=== PATIENT | male | born 1945 | race Hispanic/Latino ===

== ENCOUNTER 2020-07-30 05:30 | Emergency (ER) | payer MEDICARE ==
[~2020-07-30] VITALS: Ht 167.6 cm; Wt 72.6 kg
[2020-07-30] MEDS ORDERED: MORPHINE SULFATE INJ 4 MG/ML INJ 1ML IV STA (05:36)
[2020-07-30] MEDS ORDERED: ONDANSETRON HCL INJ 2MG/ML 2ML 2 MG/ML VIAL IV STA (05:36)
[2020-07-30] MEDS ORDERED: SODIUM CHLORIDE 0.9% 1000ML 1,000 ML IV ONE (05:45)
--- NOTE | 2020-07-30 05:47 | Emergency Department Note ---
History of Present Illnes History of Present Illness Chief Complaint: Abdominal Complaints History of Present Illness This is a 75 year old male PRESENTS TO ED WITH REPORT OF LLQ PAIN AND NAUSEA X3 HRS; 20 GAUGE IV CATH PLACED TO PTS LEFT AC, BLOOD OBTAINED FOR LAB ANALYSIS; PTS SKIN WARM, DRY, . Historian: Patient, Family Member Arrival Mode: Car Onset (how long ago): hour(s) (3) Location: LLQ Quality: PAIN Radiation: Reports non-radiation Severity: moderate Onset quality: sudden Duration (how long): hour(s) (3) Timing of current episode: constant Progression: unchanged Chronicity: new Context: Denies recent illness, Denies recent surgery, Denies recent travel Relieving factors: none Exacerbating factors: none Associated symptoms: Reports nausea/vomiting Treatments prior to arrival: none (AMANDO WRIGHT MD) Past Medical/Family History Physician Review I have reviewed the patient's past medical and family history. Any updates have been documented here. (AMANDO WRIGHT MD) Past Medical History Recent Fever: No Clinical Suspicion of Infectio: No New/Unexplained Change in Ment: No (AMANDO WRIGHT MD) Social History Smoking Cessation: Never Smoker Alcohol Use: None Any Illegal Drug Use: No Physically hurt or threatened: No (AMANDO WRIGHT MD) Family History Family history of heart diseas: No (AMANDO WRIGHT MD) Review of Systems Review of Systems Constitutional: Reports no symptoms EENTM: Reports no symptoms Cardiovascular: Reports no symptoms Respiratory: Reports no symptoms Gastrointestinal: Reports as per HPI Genitourinary: Reports no symptoms Musculoskeletal: Reports no symptoms Integumentary: Reports no symptoms Neurological: Reports no symptoms Psychological: Reports no symptoms Endocrine: Reports no symptoms Hematological/Lymphatic: Reports no symptoms (AMANDO WRIGHT MD) Physical Exam Related Data Allergies: Coded Allergies: iodine (Verified Allergy, Intermediate, 07/30/20) Triage Vital Signs Vital Signs Date Time Temp Pulse Resp B/P (MAP) Pulse Ox O2 Delivery O2 Flow Rate FiO2 07/30/20 05:33 97.8 72 18 129/64 98 Room Air Vital signs reviewed: Yes (AMANDO WRIGHT MD) Physical Exam CONSTITUTIONAL Constitutional: Present well-developed, Present well-nourished, Present distressed (MODERATE) HENT HENT: Present normocephalic, Present atraumatic, Present oropharynx clear/moist, Present nose normal HENT L/R: Present left ext ear normal, Present right ext ear normal EYES Eyes: Reports PERRL, Reports conjunctivae normal NECK Neck: Present ROM normal PULMONARY Pulmonary: Present effort normal, Present breath sounds normal CARDIOVASCULAR Cardiovascular: Present regular rhythm, Present heart sounds normal, Present capillary refill normal, Present normal rate GASTROINTESTINAL Abdominal: Present soft, Present bowel sounds normal, Present tender (MODERATE LLQ); Absent left CVA tenderness GENITOURINARY Genitourinary: Present exam deferred SKIN Skin: Present warm, Present dry MUSCULOSKELETAL Musculoskeletal: Present ROM normal NEUROLOGICAL Neurological: Present alert, Present oriented x 3, Present no gross motor or sensory deficits PSYCHOLOGICAL Psychological: Present mood/affect normal, Present judgement normal (AMANDO BUCHANAN MD) Procedures 12 Lead ECG Interpretation ECG Interpretation : ECG: ECG 1 Cnc Set Up Operator: Interpreted by ED physician Date: Jul 30, 2020 Time: 05:44 Rhythm: sinus rhythm Rate: normal BPM: 62 QRS axis: normal ST segments normal: Yes T waves normal: Yes Other findings: LVH Clinical Impression: non-specific ECG (AMANDO WRIGHT MD) Assessment & Plan Medical Decision Making MDM PT WITH LLQ PAIN WITH N/V CBC, CMP, AMYLASE, LIPASE, UA, CT ABD/PELVIS ORDERED TO EVAL FOR DIVERTICULITIS, COLITIS, UTI, HEMATURIA, KIDNEY STONE, ELEVATED LFT'S MORPHINE 4 MG IV ORDERED ZOFRAN 4 MG IV ORDERED NS 1 LITER IV BOLUS ORDERED [address] KYLE (AMANDO WRIGHT MD) MDM Distal L 4mm ureteral stone noted on CT w/ mild hydro. Non obstructive. Will DC on Drury 5, zofran, and f/u w/ Dr. Lovell in Urology (ANASTACIA KYLE MD) Assessment & Plan Final Impression: (1) Abdominal pain (AMANDO WRIGHT MD) Final Impression: (1) Abdominal pain (2) Ureterolithiasis (ANASTACIA KYLE MD) Depart Disposition: HOME, SELF-CARE Last Vital Signs Date Time Temp Pulse Resp B/P (MAP) Pulse Ox O2 Delivery O2 Flow Rate FiO2 07/30/20 05:33 97.8 72 18 129/64 98 Room Air (AMANDO WRIGHT MD) Medications in the ED Morphine Sulfate 4 mg NOW STAT IV ; Start 07/30/20 at 05:36; Stop 07/30/20 at 05:37; Status UNV Ondansetron HCl 4 mg NOW STAT IV ; Start 07/30/20 at 05:36; Stop 07/30/20 at 05:37; Status UNV Sodium Chloride 1,000 ml @ 999 mls/hr Q1H1M ONCE IV ; Start 07/30/20 at 05:45; Stop 07/30/20 at 06:45 (AMANDO WRIGHT MD) AMANDO WRIGHT MD Jul 30, 2020 05:47 ANASTACIA KYLE MD Jul 30, 2020 06:44
[2020-07-30 05:53] LABS: BASOPHILS % 0.5 % (0.0-1.0); EOSINOPHILS # (AUTO) 0.1 (0.0-0.4); EOSINOPHILS % 1.2 % (0.0-6.0); HEMATOCRIT 42.8 % (38.2-49.6); HEMOGLOBIN 14.1 g/dL (14.0-18.0); LYMPHOCYTES # (AUTO) 2.6 (1.0-3.2); LYMPHOCYTES % 31.8 % (18.0-39.1); MEAN CORPUSCULAR HEMOGLOBIN 29.6 pg (28-32); MEAN CORPUSCULAR HGB CONC 32.9 g/dL (31-35); MEAN CORPUSCULAR VOLUME 89.9 fL (81-99); MONOCYTES # (AUTO) 0.5 (0.2-0.8); MONOCYTES % 6.5 % (4.4-11.3); NEUTROPHILS # (AUTO) 4.9 (2.1-6.9); NEUTROPHILS % 59.6 % (38.7-80.0); PLATELET COUNT 253 x10e3/uL (140-360); RED BLOOD COUNT 4.76 x10e6/uL (4.3-5.7); RED CELL DISTRIBUTION WIDTH 12.9 % (11.7-14.4)
[2020-07-30] MEDS ORDERED: MORPHINE SULFATE 2 MG/ML SYR 1ML ONE (05:54)
[2020-07-30] MEDS ORDERED: ONDANSETRON HCL INJ 2MG/ML 2ML 2 MG/ML VIAL ONE (05:54)
[2020-07-30 06:02] LABS: CLARITY,URINE CLEAR (CLEAR); COLOR,URINE YELLOW (YELLOW); LEUKOCYTE ESTERASE ,URINE NEGATIVE (NEGATIVE); NITRITE,URINE NEGATIVE (NEGATIVE)
[2020-07-30 06:03] LABS: BILIRUBIN,URINE SMALL (NEGATIVE); KETONES,URINE 1+ (NEGATIVE); PROTEIN,URINE DIPSTICK 2+ (NEGATIVE); URINE UROBILINOGEN 0.2 mg/dL (0.2 - 1)
--- OUTSIDE RECORDS SUMMARY | 2020-07-30 06:04 | XMS REPORT | Continuity of Care Document ---
Author Author LANDON Pedroza [employer] Address Unknown Phone Unavailable Care Team Providers Care Assistant Signal Maintainer Name Role Phone [employer] Information Exchange Unavailable Un available Problems Problem Status Onset Date Classification Date Reported Comments Source Benign hypertension (disorder) Active Problem 12/2019 [facility] Diabetic complication (disorder) Active Problem 12/2019 [facility] History of malignant neoplasm of prostate (situation) Active Problem 10/25/2019 [facility] Mixed hyperlipidemia (disorder) Active Problem 12/2019 [facility] Medications Medication Details Route Status Patient Instructions Ordering Provider Order Date Source rosuvastatin 10 mg oral tablet See Instructions, # 90 tab, TOME PHIL TABLETA POR VIA ORAL [place], Pharmacy: [facility]/pharmacy #6000 Active 10/23/2019 [facility] omeprazole 40 mg oral delayed release capsule See Instructions, # 90 unknown unit, TOME PHIL [place]A [place], Pharmacy: [facility]/pharmacy #6000 Active 07/26/2019 [facility] ONE TOUCH ULTRA BLUE TEST STRP See Instructions, # 100 strip, Refill(s) 12, USE [place], Pharmacy: [facility]/pharmacy #6000 Active 07/08/2019 [facility] rosuvastatin 10 mg oral tablet See Instructions, TOME PHIL TABLETA [place], # 90 tab, 1 Refill(s), Pharmacy: [facility]/pharmacy #6000 Active 04/26/2019 [facility] Metformin hydrochloride 500 MG Oral Tablet 500 mg = 1 tab, PO, BID-Meals, # 180 tab, 1 Refill(s), Pharmacy: [facility]/pharmacy #6000 Active 04/26/2019 [facility] Hydrochlorothiazide 12.5 MG / Losartan P otassium 50 MG Oral Tablet See Instructions, TOME PHIL TABLETA [place], # 90 tab, 1 Refill(s), Pharmacy: [facility]/pharmacy #6000 Active 04/26/2019 [facility] Atenolol 100 MG Oral Tablet Se e Instructions, TOME PHIL TABLETA [place], # 90 tab, 1 Refill(s), Pharmacy: [facility]/pharmacy #6000 Active 04/26/2019 [facility] Diclofenac Sodium 0.01 MG/MG Topical Gel 4 gm = 1 appl, TOP, BID, PRN Apply to affected area, # 100 gm, 1 Refill(s), Pharmacy: [facility]/pharmacy #6000 Active 04/26/2019 [facility] meloxicam 15 mg oral tablet 15 mg = 1 tab, PO, Daily, # 30 tab, 0 Refill(s), Pharmacy: [facility]/pharmacy #6000 Active 04/26/2019 [facility] Metformin hydrochloride 500 MG Oral Tablet 500 mg = 1 tab, PO, BID-Meals, # 180 tab, 1 Refill(s), Pharmacy: [facility]/pharmacy #6000 Active 02/08/2019 [facility] Hydrochlorothiazide 12.5 MG / Losartan P otassium 50 MG Oral Tablet See Instructions, # 90 tab, Refill(s) 1, TOME PHIL TABLETA [place], Pharmacy: [facility]/pharmacy #6000 Active 01/11/2019 [facility] omeprazole 40 mg oral delayed release capsule See Instructions, # 90 unknown unit, TOME PHIL CAPSULA [place], Pharmacy: [facility]/pharmacy #6000 Active 01/11/2019 [facility] Metformin hydrochloride 500 MG Oral Tablet See Instructions, # 180 tab, Refill(s) 1, TOME PHIL TABLETA POR VIA ORAL DOS VECES [place], Pharmacy: [facility]/pharmacy #6000 Active 01/11/2019 [facility] Atenolol 100 MG Oral Tablet Se e Instructions, # 90 tab, Refill(s) 1, TOME PHIL TABLETA [place], Pharmacy: [facility]/pharmacy #6000 Active 01/11/2019 [facility] levocetirizine 5 mg oral tablet See Instructions, # 30 tab, TOME PHIL TABLETA [place], Pharmacy: [facility]/pharmacy #6000 Active 12/30/2018 [facility] levocetirizine dihydrochloride 5 MG Oral Tablet [Xyzal ] 5 mg = 1 tab, PO, QPM, # 30 tab, 0 Refill(s), Pharmacy: [facility]/pharmacy #6000 No Longer Active 11/30/2018 [facility] Codeine Phosphate 2 MG/ML / Guaifenesin 20 MG/ML Oral Solution [Cheratussin] 10 ml, PO, Q8H, PRN for cough, X 14 day, # 120 mL, 0 Refill(s) No Longer Active 11/30/2018 [facility] rosuvastatin 10 mg oral tablet See Instructions, # 90 tab, Refill(s) 1, TOME PHIL TABLETA [place] [facility], Pharmacy: [facility]/pharmacy #6000 Active 11/05/2018 [facility] omeprazole 40 mg oral delayed release capsule See Instructions, # 90 unknown unit, TOME PHIL CAP[place]ULA [facility], Pharmacy: [facility]/pharmacy #6000 No Longer Active 11/05/2018 [facility] Hydrochlorothiazide 12.5 MG / Losartan P otassium 50 MG Oral Tablet 1 tab, PO, Daily, # 90 tab, 1 Refill(s), Pharmacy: [facility]/pharmacy #6000 No Longer Active 08/22/2018 [facility] tadalafil 5 MG Oral Tablet [Cialis] 5 mg = 1 tab, PO, Daily, Benign Prostatic Hyperplasia, # 30 tab, 0 Refill(s), Pharmacy: [facility]/pharmacy #6000 Active 08/08/2018 [facility] rosuvastatin 10 mg oral tablet 10 mg = 1 tab, PO, Bedtime, # 90 tab, 0 Refill(s), Pharmacy: [facility]/pharmacy #6000 No Longer Active 08/08/2018 [facility] omeprazole 40 mg oral delayed release capsule 40 mg = 1 cap, PO, Daily, # 90 cap, 0 Refill(s), Pharmacy: [facility]/pharmacy #6000 No Longer Active 08/08/2018 [facility] Metformin hydrochloride 500 MG Oral Tablet 500 mg = 1 tab, PO, BID-Meals, # 180 tab, 1 Refill(s), Pharmacy: [facility]/pharmacy #6000 No Longer Active 08/08/2018 [facility] Hydrochlorothiazide 12.5 MG / valsartan 80 MG Oral Tablet 1 tab, PO, Daily, # 90 tab, 1 Refill(s), Pharmacy: [facility]/pharmacy #6000 No Longer Active 08/08/2018 [facility] Atenolol 100 MG Oral Tablet 10 0 mg = 1 tab, PO, Daily, # 90 tab, 1 Refill(s), Pharmacy: [facility]/pharmacy #6000 No Longer Active 08/08/2018 [facility] rosuvastatin 10 mg oral tablet 10 mg = 1 tab, PO, Bedtime, # 90 tab, 0 Refill(s) Inactive 08/08/2018 [facility] Atenolol 100 MG Oral Tablet 10 0 mg = 1 tab, PO, Daily, # 90 tab, 0 Refill(s) Inactive 08/08/2018 [facility] Hydrochlorothiazide 12.5 MG / valsartan 80 MG Oral Tablet 1 tab, PO, Daily, # 90 tab, 1 Refill(s) Inactive 08/08/2018 [facility] omeprazole 40 mg oral delayed release capsule 40 mg = 1 cap, PO, Daily, # 90 cap, 0 Refill(s) Inactive 08/08/2018 [facility] tadalafil 5 MG Oral Tablet [Cialis] 5 mg = 1 tab, PO, Daily, Benign Prostatic Hyperplasia, # 90 tab, 3 Refill(s) Inactive 08/08/2018 [facility] Metformin hydrochloride 500 MG Oral Tablet 500 mg = 1 tab, PO, BID-Meals, # 180 tab, 1 Refill(s) Inactive 08/08/2018 [facility] Allergies, Adverse Reactions, Alerts Substance Category Reaction Severity Reaction type Status Date Reported Comments Source iodine Assertion Drug allergy Active [facility] Immunizations Immunization Date Given Site Status Last Updated Comments Source pneumococcal 13-valent vaccine<sup>1</sup> 08/08/2018 Right Deltoid completed [place] Result Comment: Pat dallasnt waited in room ten mins no allergic reaction. Medical [facility] Results No Data Provided for This Section Pathology Reports No Data Provided for This Section Diagnostic Reports No Data Provided for This Section Consultation Notes No Data Provided for This Section Discharge Summaries No Data Provided for This Section History and Physicals No Data Provided for This Section Vital Signs Vital Sign Value Date Comments Source Height 170.18 cm 04/26/2019 [facility] Weight 71.364 04/26/2019 [facility] BMI Calculated 24.64 04/26/2019 [facility] Heart Rate 63 04/26/2019 [facility] Systolic (mm Hg) 136 04/26/2019 [facility] Diastolic (mm Hg) 83 04/26/2019 [facility] Respitory Rate 16 04/26/2019 [facility] Systolic (mm Hg) 137 12/24/2018 [facility] Diastolic (mm Hg) 69 12/24/2018 [facility] Height 165.1 cm 12/24/2018 [facility] Weight 76.364 12/24/2018 [facility] BMI Calculated 28.02 12/24/2018 [facility] Heart Rate 66 12/24/2018 [facility] Respitory Rate 16 12/24/2018 [facility] Temperature Oral (F) 97.0 F 12/24/2018 [facility] Systolic (mm Hg) 149 12/24/2018 [facility] Diastolic (mm Hg) 80 12/24/2018 [facility] BMI Calculated 27.01 11/30/2018 [facility] Weight 75.909 11/30/2018 [facility] Height 167.64 cm 11/30/2018 [facility] Heart Rate 72 11/30/2018 [facility] Systolic (mm Hg) 136 11/30/2018 [facility] Diastolic (mm Hg) 74 11/30/2018 [facility] Temperature Oral (F) 97.7 F 11/30/2018 [facility] Respitory Rate 16 11/30/2018 [facility] Respitory Rate 16 08/22/2018 [facility] Temperature Oral (F) 97.6 F 08/22/2018 [facility] Heart Rate 76 08/22/2018 [facility] BMI Calculated 30 08/22/2018 [facility] Height 160.02 cm 08/22/2018 [facility] Weight 76.818 08/22/2018 [facility] Systolic (mm Hg) 133 08/22/2018 [facility] Diastolic (mm Hg) 74 08/22/2018 [facility] Temperature Oral (F) 97.4 F 08/08/2018 [facility] Systolic (mm Hg) 126 08/08/2018 [facility] Diastolic (mm Hg) 74 08/08/2018 [facility] Heart Rate 72 08/08/2018 [facility] Respitory Rate 16 08/08/2018 [facility] Height 165.1 cm 08/08/2018 [facility] BMI Calculated 28.18 08/08/2018 [facility] Weight 76.818 08/08/2018 [facility] Encounters Location Location Details Encounter Type Encounter Number Reason For Visit Attending Provider ADM Date DC Date Status Source Outpatient [id number] DEVI BILLY 08/08/2018 [facility] Primary [facility] Outpatient [id number] Devi Billy 08/08/2018 08/09/2018 [facility] Outpatient [id number] DEVI BILLY 08/22/2018 [facility] Primary [facility] Outpatient [id number] Devi Mariajose 08/22/2018 08/23/2018 [facility] Outpatient [id number] DEVI BILLY 11/30/2018 Active [facility] Outpatient [id number] Devi Mariajose 11/30/2018 12/01/2018 [facility] Outpatient [id number] DEVI MARIAJOSE 12/24/2018 Active [facility] Outpatient [id number] Devi Mariajose 12/24/2018 12/25/2018 [facility] Phone Message [id number] 02/08/2019 02/10/2019 [facility] Outpatient [id number] Devi Billy 04/26/2019 Active [facility] Outpatient [id number] Devi Mariajose 04/26/2019 04/27/2019 [facility] Phone Message [id number] 07/08/2019 07/10/2019 [facility] Phone Message [id number] 07/25/2019 07/27/2019 [facility] Phone Message [id number] 10/21/2019 10/23/2019 [facility] Phone Message [id number] 10/21/2019 10/23/2019 [facility] Phone Message [id number] 10/21/2019 10/23/2019 [facility] Phone Message [id number] 10/22/2019 10/24/2019 [facility] Procedures Procedure Code Date Perfomer [facility] Source Diabetic Retinopathy Study 7 field stere oscopic fundus photography<sup>1, 2</sup> [id number] 05/15/2019 [facility] Exercise stress test<sup>1</sup> [id number] 10/18/2018 [facility] Exercise stress test<sup>3</sup> [id number] 10/18/2018 [facility] Diabetic Retinopathy Study 7 field stere oscopic fundus photography<sup>2</sup> [id number] 03/23/2018 [facility] Colonoscopy [id number] 10/23/2010 [facility] Assessment and Plan No Data Provided for This Section Plan of Care No Data Provided for This Section Social History Social History Date Source Social History TypeResponse Alcohol Never Smoking Status Never smoker; Exposure to Tobacco Smoke None; Cigarette Smoking Last 365 Days No; Reg Smoking Cessation Counseling No entered on: 04/26/19 08/08/2018 [facility] Family History No Data Provided for This Section Advance Directives No Data Provided for This Section Functional Status No Data Provided for This Section
[2020-07-30 06:10] LABS: ALANINE AMINOTRANSFERASE 30 IU/L (0-55); ALBUMIN 3.7 g/dL (3.5-5.0); ALBUMIN/GLOBULIN RATIO 1.2 (0.8-2.0); ALKALINE PHOSPHATASE 61 IU/L (40-150); ANION GAP 17.6 mmol/L (8-16); BLOOD UREA NITROGEN 17 mg/dL (7-26); BUN/CREATININE RATIO 19 (6-25); CALCIUM 9.1 mg/dL (8.4-10.2); CARBON DIOXIDE 21 mmol/L (22-29); CHLORIDE 106 mmol/L (98-107); EST GLOMERULAR FILTRATION RATE > 60 ML/MIN (60-); GLUCOSE 143 mg/dL (74-118); POTASSIUM 3.6 mmol/L (3.5-5.1); SODIUM 141 mmol/L (136-145)
[2020-07-30 06:11] LABS: AMYLASE 93 U/L (25-125); LIPASE 38 U/L (8-78)
[2020-07-30 06:23] LABS: BACTERIA,URINE MODERATE /HPF; EPITHELIAL CELLS,URINE FEW /LPF; RBC,URINE >50 /HPF (0-5); WBC,URINE (MAN) 0-5 /HPF (0-5)
[2020-07-30] MEDS ORDERED: KETOROLAC TROMETHAMINE 30 MG/ML VIAL IV STA (06:27)
--- NOTE | 2020-07-30 06:30 | Diagnostic Imaging Report ---
EXAM: CT Abdomen and Pelvis WITHOUT contrast INDICATION: LLQ PAIN, PT IS ALLERGIC TO IODINE COMPARISON: None. TECHNIQUE: Abdomen and pelvis were scanned utilizing a multidetector helical scanner from the lung base to the pubic symphysis without administration of IV contrast. Absence of intravenous contrast decreases sensitivity for detection of focal lesions and vascular pathology. Coronal and sagittal reformations were obtained. Routine protocol was performed. IV CONTRAST: None ORAL CONTRAST: None COMPLICATIONS: None FINDINGS: LOWER THORAX: Mild dependent atelectasis. HEPATOBILIARY: No significant abnormality. GALLBLADDER: No radio-opaque stones or sludge. No wall thickening. SPLEEN: No splenomegaly. PANCREAS: No focal masses or ductal dilatation. ADRENALS: No adrenal nodules KIDNEYS/URETERS: 4 mm calculus in the distal left ureter with resultant mild hydroureteronephrosis and perinephric fat stranding. GI TRACT: No abnormal distention, wall thickening, or evidence of bowel obstruction. Appendix is not clearly identified. There is however no fat stranding or adenopathy in the right lower quadrant to suggest appendicitis. PELVIC ORGANS/BLADDER: Prostate is mildly enlarged. LYMPH NODES: No lymphadenopathy. VESSELS: Unremarkable. PERITONEUM / RETROPERITONEUM: No free air or fluid. BONES: There are degenerative changes in the spine. IMPRESSION: 4 mm calculus in the distal left ureter with mild left hydroureteronephrosis. Signed by: Leo Fox MD on 07/30/2020 6:26 AM
[2020-07-30] MEDS ORDERED: KETOROLAC TROMETHAMINE 30 MG/ML VIAL ONE (06:33)
[2020-07-30 06:49] VITALS: BP 144/78
== END 2020-07-30 06:57 | disposition home or self-care (01) ==
LOC: ER 05:50
DX: R10.32 Left lower quadrant pain (principal); R11.2 Nausea with vomiting, unspecified; N13.2 Hydronephrosis with renal and ureteral calculous obstruction
CPT/HCPCS: 36415; 74176; 80053; 81001; 82150; 83690; 85025; 93005; 99284; J1885; J2270; J2405; J7030

== ENCOUNTER 2020-09-05 12:08 | Inpatient (IN) | payer MEDICARE, OTHER ==
[~2020-09-05] VITALS: Ht 167.6 cm; Wt 72.6 kg
[2020-09-05] MEDS ORDERED: SODIUM CHLORIDE 0.9% 1000ML 1,000 ML IV STA (12:25)
[2020-09-05] MEDS ORDERED: MORPHINE SULFATE 2 MG/ML SYR 1ML IV NR (12:30)
[2020-09-05] MEDS ORDERED: ONDANSETRON HCL INJ 2MG/ML 2ML 2 MG/ML VIAL IV NR (12:30)
[2020-09-05] MEDS ORDERED: KETOROLAC TROMETHAMINE 30 MG/ML VIAL IV NR (12:30)
--- OUTSIDE RECORDS SUMMARY | 2020-09-05 12:36 | XMS REPORT | Continuity of Care Document ---
Author Author LANDON Pedroza Flow[employer] Address Unknown Phone Unavailable Care Team Providers Care Cell Biologist Name Role Phone [employer] Information [employer] Unavailable Un available Problems Problem [...] TABLETA POR VIA ORAL [place], Pharmacy: [facility]/pharmacy #6000 Active 10/23/2019 [facility] omeprazole 40 mg oral delayed release capsule See Instructions, # 90 unknown unit, TOME PHIL [place], Pharmacy: [facility]/pharmacy #6000 Active 07/26/2019 [facility] ONE TOUCH ULTRA BLUE TEST STRP See Instructions, # 100 strip, Refill(s) 12, USE [place], Pharmacy: [facility]/pharmacy #6000 Active 07/08/2019 [facility] rosuvastatin 10 mg oral tablet See Instructions, TOME PHIL TABLETA [place] [facility]STAR[facility], # 90 tab, 1 Refill(s), Pharmacy: [facility]/pharmacy #6000 Active 04/26/2019 [facility] Metformin hydrochloride 500 MG Oral Tablet 500 mg = 1 tab, PO, BID-Meals, # 180 tab, 1 Refill(s), Pharmacy: [facility]/pharmacy #6000 Active 04/26/2019 [facility] Hydrochlorothiazide 12.5 MG / Losartan P otassium 50 MG Oral Tablet See Instructions, TOME PHIL TABLETA [place], # 90 tab, 1 Refill(s), Pharmacy: [facility]/pharmacy #6000 Active 04/26/2019 [facility] Atenolol 100 MG Oral Tablet Se e Instructions, TOME PHIL TABLETA [place], # 90 tab, 1 Refill(s), Pharmacy: [facility]/pharmacy #6000 Active 04/26/2019 [facility] Diclofenac Sodium 0.01 MG/MG Topical Gel 4 gm = 1 appl, TOP, BID, PRN Apply to affected area, # 100 gm, 1 Refill(s), Pharmacy: [facility]/pharmacy #6000 Active 04/26/2019 [facility] meloxicam 15 mg oral tablet 15 mg = 1 tab, PO, Daily, # 30 tab, 0 Refill(s), Pharmacy: [facility]/pharmacy #6000 Active 04/26/2019 [facility] Metformin hydrochloride 500 MG Oral Tablet 500 mg = 1 tab, PO, BID-Meals, # 180 tab, 1 Refill(s), Pharmacy: [facility]/pharmacy #6000 Active 02/08/2019 [facility] Hydrochlorothiazide 12.5 MG / Losartan P otassium 50 MG Oral Tablet See Instructions, # 90 tab, Refill(s) 1, TOME PHIL TABLETA [place], Pharmacy: [facility]/pharmacy #6000 Active 01/11/2019 [facility] omeprazole 40 mg oral delayed release capsule See Instructions, # 90 unknown unit, TOME PHIL [place], Pharmacy: [facility]/pharmacy #6000 Active 01/11/2019 [facility] Metformin hydrochloride 500 MG Oral Tablet See Instructions, # 180 tab, Refill(s) 1, TOME PHIL TABLETA POR VIA ORAL DOS VECES [place], Pharmacy: [facility]/pharmacy #6000 Active 01/11/2019 [facility] Atenolol 100 MG Oral Tablet Se e Instructions, # 90 tab, Refill(s) 1, TOME PHIL TABLETA [place], Pharmacy: [facility]/pharmacy #6000 Active 01/11/2019 [facility] levocetirizine 5 mg oral tablet See Instructions, # 30 tab, TOME PHIL [place], Pharmacy: [facility]/pharmacy #6000 Active 12/30/2018 [facility] levocetirizine dihydrochloride 5 MG Oral Tablet [Xyzal ] 5 mg = 1 tab, PO, QPM, # 30 tab, 0 Refill(s), Pharmacy: [facility]/pharmacy #6000 No Longer Active 11/30/2018 [facility] Codeine Phosphate 2 MG/ML / Guaifenesin 20 MG/ML Oral Solution [Cheratussin] 10 ml, PO, Q8H, PRN for cough, X 14 day, # 120 mL, 0 Refill(s) No Longer Active 11/30/2018 [facility] rosuvastatin 10 mg oral tablet See Instructions, # 90 tab, Refill(s) 1, TOME PHIL [place]TA [place] [facility], Pharmacy: [facility]/pharmacy #6000 Active 11/05/2018 [facility] omeprazole 40 mg oral delayed release capsule See Instructions, # 90 unknown unit, TOME PHIL [place] [facility], Pharmacy: [facility]/pharmacy #6000 No Longer Active 11/05/2018 [facility] Hydrochlorothiazide 12.5 MG / Losartan P otassium 50 MG Oral Tablet 1 tab, PO, Daily, # 90 tab, 1 Refill(s), Pharmacy: [facility]/pharmacy #6000 No Longer Active 08/22/2018 [facility] tadalafil 5 MG Oral Tablet [Cialis] 5 mg = 1 tab, PO, Daily, Benign Prostatic Hyperplasia, # 30 tab, 0 Refill(s), Pharmacy: [facility]/pharmacy #6000 Active 08/08/2018 [facility] rosuvastatin 10 mg oral tablet 10 mg = 1 tab, PO, Bedtime, # 90 tab, 0 Refill(s), Pharmacy: [facility]/pharmacy #6000 No Longer Active 08/08/2018 [facility] omeprazole 40 mg oral delayed release capsule 40 mg = 1 cap, PO, Daily, # 90 cap, 0 Refill(s), Pharmacy: [facility]/pharmacy #6000 No Longer Active 08/08/2018 [facility] Metformin hydrochloride 500 MG Oral Tablet 500 mg = 1 tab, PO, BID-Meals, # 180 tab, 1 Refill(s), Pharmacy: [facility]/pharmacy #6000 No Longer Active 08/08/2018 [facility] Hydrochlorothiazide 12.5 MG / valsartan 80 MG Oral Tablet 1 tab, PO, Daily, # 90 tab, 1 Refill(s), Pharmacy: [facility]/pharmacy #6000 No Longer Active 08/08/2018 [facility] Atenolol 100 MG Oral Tablet 10 0 mg = 1 tab, PO, Daily, # 90 tab, 1 Refill(s), Pharmacy: [facility]/pharmacy #6000 No Longer Active 08/08/2018 [facility] rosuvastatin 10 mg oral tablet 10 mg = 1 tab, PO, Bedtime, # 90 tab, 0 Refill(s) Inactive 08/08/2018 [facility] Atenolol 100 MG Oral Tablet 10 0 mg = 1 tab, PO, Daily, # 90 tab, 0 Refill(s) Inactive 08/08/2018 [facility] Hydrochlorothiazide 12.5 MG / valsartan 80 MG Oral Tablet 1 tab, PO, Daily, # 90 tab, 1 Refill(s) Inactive 08/08/2018 [facility] omeprazole 40 mg oral delayed release capsule 40 mg = 1 cap, PO, Daily, # 90 cap, 0 Refill(s) Inactive 08/08/2018 [facility] tadalafil 5 MG Oral Tablet [Cialis] 5 mg = 1 tab, PO, Daily, Benign Prostatic Hyperplasia, # 90 tab, 3 Refill(s) Inactive 08/08/2018 [facility] Metformin hydrochloride 500 MG Oral Tablet 500 mg = 1 tab, PO, BID-Meals, # 180 tab, 1 Refill(s) Inactive 08/08/2018 [facility] Allergies, Adverse Reactions, Alerts Substance Category Reaction Severity Reaction type Status Date Reported Comments Source iodine Assertion Drug allergy Active [facility] Immunizations Immunization Date Given Site Status Last Updated Comments Source pneumococcal 13-valent vaccine<sup>1</sup> 08/08/2018 Right Deltoid completed [place] Result Comment: Pat [place] waited in room ten mins no allergic reaction. Medical [facility] Results No Data Provided for This Section Pathology Reports No Data Provided for This Section Diagnostic Reports No Data Provided for This Section Consultation Notes No Data Provided for This Section Discharge Summaries No Data Provided for This Section History and Physicals No Data Provided for This Section Vital Signs Vital Sign Value Date Comments Source Height 170.18 cm 04/26/2019 Medical [facility] Weight 71.364 04/26/2019 [facility] BMI Calculated 24.64 04/26/2019 Medical [facility] Heart Rate 63 04/26/2019 [facility] Systolic (mm Hg) 136 04/26/2019 Medical [facility] Diastolic (mm Hg) 83 04/26/2019 Medical [facility] Respitory Rate 16 04/26/2019 [facility] Systolic (mm Hg) 137 12/24/2018 [facility] Diastolic (mm Hg) 69 12/24/2018 Medical [facility] Height 165.1 cm 12/24/2018 [facility] [...] ADM Date DC Date Status Source Outpatient [id number] DEVI BILLY 08/08/2018 [facility] Primary Care [facility] Outpatient [id number] Devi Billy 08/08/2018 08/09/2018 [facility] Outpatient [id number] DEVI BILLY 08/22/2018 [facility] Primary [facility] Outpatient [id number] Devi Mariajose 08/22/2018 08/23/2018 [facility] Outpatient [id number] DEVI BILLY 11/30/2018 Active [facility] Outpatient [id number] Devi Mariajose 11/30/2018 12/01/2018 [facility] Outpatient [id number] DEVI MARIAJOSE 12/24/2018 Active [facility] Outpatient [id number] Devi Mariajose 12/24/2018 12/25/2018 [facility] Group [facility] Phone Message [phone] 02/08/2019 02/10/2019 [facility] Outpatient [id number] Devi Bilyl 04/26/2019 Active [facility] Outpatient [id number] Devi Mariajose 04/26/2019 04/27/2019 Medical Group [facility] Phone Message [id number] 07/08/2019 07/10/2019 Medical Group [facility] Phone Message [id number] 07/25/2019 07/27/2019 [facility] Group [facility] Phone Message [id number] 10/21/2019 10/23/2019 [facility] Group [facility] Phone Message [id number] 10/21/2019 10/23/2019 [facility] Group [facility] Phone Message [id number] 10/21/2019 10/23/2019 [facility] Phone Message [phone] 10/22/2019 10/24/2019 [facility] Procedures Procedure Code Date Perfomer [facility] Source Diabetic Retinopathy Study 7 field stere oscopic fundus photography<sup>1, 2</sup> [id number] 05/15/2019 [facility] Exercise stress test<sup>1</sup> [id number] 10/18/2018 Normal [facility] Exercise stress test<sup>3</sup> [id number] 10/18/2018 Normal [facility] Diabetic Retinopathy Study 7 field stere oscopic fundus photography<sup>2</sup> [id number] 03/23/2018 per patient [facility] Colonoscopy [id number] 10/23/2010 [facility] Assessment and Plan No [...]
--- OUTSIDE RECORDS SUMMARY | 2020-09-05 12:37 | XMS REPORT | Continuity of Care Document ---
Author Author [facility] t Organization [facility] Address [address] [place] [address] Phone Unavailable Care Team Providers Care Rn Chemical Dependency Name Role Phone PRINCE ANGULO PCP Lora Khoury Attphys Unavailable Kacey Coffey Attphys Payers Payer Name Policy Type Policy Number Effective Date Expiration Date [facility] [id number] 2019 00:00:00 [facility] Problems Condition Name Condition Details Condition Category Status Onset Date Resolution Date Last Treatment Date Treating Clinician Comments Source Abdominal pain Problem Active C [facility] Calculus of ureter Problem Active [facility] Benign hypertension (disorder) Benign hypertension (disorder) Active Problem 10/25/2019 [facility] Problem Active 2019-10-25 23:22:59 Didi Gonzales Diabetic complication (disorder) Diabetic complication (disorder) Active Problem 10/25/2019 [facility] Problem Active 2019-10-25 23:22:59 Didi Gonzales History of malignant neoplasm of prostate (situation) History of malignant neoplasm of prostate (situation) Active Problem 10/25/2019 [facility] Problem Active 2019-10-25 23:22:59 Didi Gonzales Mixed hyperlipidemia (disorder) Mixed hyperlipidemia (disorder) Active Problem 10/25/2019 [facility] Problem Active 2019-10-25 23:22:59 Didi Gonzales Allergies, Adverse Reactions, Alerts Allergy Name Allergy Type Status Severity Reaction(s) Onset Date Inacti ve Date Treating Clinician Comments Source iodine iodine Active [facility] sobia Social History Social Habit Start Date Stop Date Quantity Comments Source Social History 2018-08-08 19:38:22 2018-08-08 19:38:22 Didi Gonzales Sex Assigned At 1945 00:00:00 1945 00:[birth year]:00 Male [facility] Medications Ordered Medication Name Filled Medication Name Start Date Stop Da te Current Medication? Ordering Clinician Indication Dosage Frequency Signature (SIG) Comments Components Source rosuvastatin 10 mg oral tablet 2019-10-23 15:35:56 Yes See Instructions, # 90 tab, TOME PHIL TABLETA POR VIA ORAL AL ACOSTARSE, Pharmacy: [facility]/pharmacy #6000 [facility] omeprazole 40 mg oral delayed release capsule 2019-07-26 02:15:4 7 Yes See Instructions, # 90 unknown unit, MERARY E PHIL CAPSULA TOS [facility], Pharmacy: [facility]/pharmacy [address] [facility] ONE TOUCH ULTRA BLUE TEST STRP 2019-07-08 12:56:58 Yes See Instructions, # 100 strip, Refill(s) 12, USE TOS [facility], Pharmacy: [facility]/pharmacy [address] [facility] rosuvastatin 10 mg oral tablet 2019-04-26 14:20:49 Yes See Instructions, TOME PHIL TABLETA TODOS [facility] AL ACOSTARSE, # 90 tab, 1 Refill(s), Pharmacy: [facility]/pharmacy #[address] [facility] Metformin hydrochloride 500 MG Oral Tablet 2019-04-26 14:20:42 Yes 500 mg = 1 tab, PO, BID-Meals, # 180 tab, 1 Refill(s), Pharmacy: [facility]/pharmacy #[address] [facility] Hydrochlorothiazide 12.5 MG / Losartan Potassium 50 MG Oral Tablet 2019-04-26 14:19:52 Yes See Instru ctions, TOME PHIL TABLETA TODOS [facility], # 90 tab, 1 Refill(s), Pharmacy: [facility]/pharmacy #[address] [facility] Atenolol 100 MG Oral Tablet 2019-04-26 14:19:50 Yes See Instructions, TOME PHIL TABLETA TODOS [place] ZIEGLER, # 90 tab, 1 Refill(s), Pharmacy: [facility]/pharmacy [address] [facility] Diclofenac Sodium 0.01 MG/MG Topical Gel 2019-04-26 14:19:00 Yes 4 gm = 1 appl, TOP, BID, PRN Apply to affected area, # 100 gm, 1 Refill(s), Pharmacy: [facility] oral tablet 2019-04-26 14:18:00 Yes 15 mg = 1 tab, PO, Daily, # 30 tab, 0 Refill(s), Pharmacy: [facility] Met[facility] hydrochloride 500 MG Oral Tablet 2019-02-08 18:26:00 Yes 500 mg = 1 tab, PO, BID-Meals, # 180 tab, 1 Refill(s), Pharmacy: [facility]/pharmacy #[address] [facility] Hydrochlorothiazide 12.5 MG / Losartan Potassium 50 MG Oral Tablet 2019-01-11 02:36:03 Yes See Instru ctions, # 90 tab, Refill(s) 1, TOME PHIL TABLETA TODOS [place]IE[place], Pharmacy: [facility]/pharmacy #[address] [facility] omeprazole 40 mg oral delayed release capsule 2019-01-11 02:36:0 3 Yes See Instructions, # 90 unknown unit, MERARY E PHIL CAPSULA TODOS [place], Pharmacy: [facility]/pharmacy #[address] [facility] Metformin hydrochloride 500 MG Oral Tablet 2019-01-11 02:36:03 Yes See Instructions, # 180 tab, Refill(s) 1, TOME PHIL TABLETA POR VIA ORAL DOS VECES AL SAVANNAH, Pharmacy: [facility]/pharmacy #[address] [facility] Atenolol 100 MG Oral Tablet 2019-01-11 02:36:03 Yes See Instructions, # 90 tab, Refill(s) 1, TOME PHIL TABLETA TODOS [place] ZIEGLER, Pharmacy: [facility]/pharmacy #[address] [facility] levocetirizine 5 mg oral tablet 2018-12-30 17:51:30 Yes See Instructions, # 30 tab, TOME PHIL TABLETA TODOS [place], Pharmacy: [facility]/pharmacy #[address] [facility] levocetirizine dihydrochloride 5 MG Oral Tablet [Xyzal] 2018-11-30 17:57:00 No 5 mg = 1 tab, P O, QPM, # 30 tab, 0 Refill(s), Pharmacy: [facility]/pharmacy #[address] [facility] Codeine Phosphate 2 MG/ML / Guaifenesin 20 MG/ML Oral Soluti on [Cheratussin] 2018-11-30 17:57:00 No 10 ml, PO, Q8H, PRN for cough, X 14 day, # 120 mL, 0 Refill(s) Didi Gonzales rosuvastatin 10 mg oral tablet 2018-11-05 02:57:27 Yes See Instructions, # 90 tab, Refill(s) 1, GLENN VILLARREAL TABLETA SHANICE ZIEGLER AL AMANDAOSTARSE, Pharmacy: [facility]/pharmacy #Clarissa Gonzales omeprazole 40 mg oral delayed release capsule 2018-11-05 02:57:2 7 No See Instructions, # 90 unknown unit, MERARY E PHIL CAPSULA SHANICE ZIEGLER, Pharmacy: [facility] Hydrochlorothiazide 12.5 MG / Losartan Potassium 50 MG Oral Tablet 2018-08-22 18:21:00 No 1 tab, PO, Daily, # 90 tab, 1 Refill(s), Pharmacy: [facility]/pharmacy #[facility] tadalafil 5 MG Oral Tablet [Cialis] 2018-08-08 20:23:00 Yes 5 mg = 1 tab, PO, Daily, Benign Prostatic Hyperplasia, # 30 tab, 0 Refill(s), Pharmacy: [facility]/pharmacy #[facility] rosuvastatin 10 mg oral tablet 2018-08-08 20:23:00 No 10 mg = 1 tab, PO, Bedtime, # 90 tab, 0 Refill(s), Pharmacy: [facility]/pharmacy #[facility] [address] omeprazole 40 mg oral delayed release capsule 2018-08-08 20:23:0 0 No 40 mg = 1 cap, PO, Daily, # 90 cap, 0 Refill(s), Pharm acy: [facility]/pharmacy #[facility] Metformin hydrochloride 500 MG Oral Tablet 2018-08-08 20:23:00 No 500 mg = 1 tab, PO, BID-Meals, # 180 tab, 1 Refill(s), Pharmacy: [facility] Hydrochlorothiazide 12.5 MG / valsartan 80 MG Oral Tablet 2018-08-08 20:23:00 No 1 tab, PO, Tonya ly, # 90 tab, 1 Refill(s), Pharmacy: [facility] Atenolol 100 MG Oral Tablet 2018-08-08 20:23:00 No 100 mg = 1 tab, PO, Daily, # 90 tab, 1 Refill(s), Pharmacy: [facility] rosuvastatin 10 mg oral tablet 2018-08-08 19:36:00 No 10 mg = 1 tab, PO, Bedtime, # 90 tab, 0 Refill(s) Dariel Gonzales Atenolol 100 MG Oral Tablet 2018-08-08 19:36:00 No 100 mg = 1 tab, PO, Daily, # 90 tab, 0 Refill(s) Eliz Gonzales Hydrochlorothiazide 12.5 MG / valsartan 80 MG Oral Tablet 2018-08-08 19:36:00 No 1 tab, PO, Daily, # 90 tab, 1 Re fill(s) Didi Gonzales omeprazole 40 mg oral delayed release capsule 2018-08-08 19:36:0 0 No 40 mg = 1 cap, PO, Daily, # 90 cap, 0 Refill(s) Didi Gonzales tadalafil 5 MG Oral Tablet [Cialis] 2018-08-08 19:36:00 No 5 mg = 1 tab, PO, Daily, Benign Prostatic Hyperplasia, # 90 tab, 3 Refill(s) Didi Gonzales Metformin hydrochloride 500 MG Oral Tablet 2018-08-08 19:36:00 No 500 mg = 1 tab, PO, BID-Meals, # 180 tab, 1 Refill(s) Didi Gonzales Vital Signs Vital Name Observation Time Observation Value Comments Source Body Temperature 2020-07-30 06:49:00 97.5 [degF] [facility] Weight 2020-07-30 05:33:00 160 [lb_av] [facility] BMI (Body Mass Index) 2020-07-30 05:33:00 25.8 kg/m2 [facility] Height 2019-04-26 13:35:00 170.18 cm Didi Gonzales Weight 2019-04-26 13:35:00 Didi Gonzales BMI Calculated 2019-04-26 13:35:00 Erik al [facility] Heart Rate 2019-04-26 13:35:00 Didi Gonzales Systolic (mm Hg) 2019-04-26 13:35:00 Dariel chamberlainl [facility] Diastolic (mm Hg) 2019-04-26 13:35:00 Jose M orial [facility] Respitory Rate 2019-04-26 13:35:00 Erik al [facility] Systolic (mm Hg) 2018-12-24 16:38:00 Dariel rial [place] Diastolic (mm Hg) 2018-12-24 16:38:00 Mem orial [facility] Height 2018-12-24 16:22:00 165.1 cm [facility] Weight 2018-12-24 16:22:00 [facility] BMI Calculated 2018-12-24 16:22:00 Memori al [place] Heart Rate 2018-12-24 16:22:00 [facility] Respitory Rate 2018-12-24 16:22:00 Memori al [place] Temperature Oral (F) 2018-12-24 16:22:00 97.0 F [facility] Systolic (mm Hg) 2018-12-24 16:22:00 Dariel rial [place] Diastolic (mm Hg) 2018-12-24 16:22:00 Mem orial [place] BMI Calculated 2018-11-30 17:43:00 Memori al [place] Weight 2018-11-30 17:43:00 [facility] Height 2018-11-30 17:43:00 167.64 cm [facility] Heart Rate 2018-11-30 17:43:00 [facility] Systolic (mm Hg) 2018-11-30 17:43:00 Dariel rial [facility] Diastolic (mm Hg) 2018-11-30 17:43:00 Mem orial [facility] Temperature Oral (F) 2018-11-30 17:43:00 97.7 F [facility] Respitory Rate 2018-11-30 17:43:00 Memori al [place] Respitory Rate 2018-08-22 18:08:00 Memori al [place] Temperature Oral (F) 2018-08-22 18:08:00 97.6 F [facility] Heart Rate 2018-08-22 18:08:00 [facility] BMI Calculated 2018-08-22 18:08:00 Memori al [facility] Height 2018-08-22 18:08:00 160.02 cm [facility] Weight 2018-08-22 18:08:00 [facility] Systolic (mm Hg) 2018-08-22 18:08:00 Dariel rial [place] Diastolic (mm Hg) 2018-08-22 18:08:00 Mem orial [place] Temperature Oral (F) 2018-08-08 19:35:00 97.4 F [facility] Systolic (mm Hg) 2018-08-08 19:35:00 Dariel rial [place] Diastolic (mm Hg) 2018-08-08 19:35:00 Jose M Gonzales Heart Rate 2018-08-08 19:35:00 Didi Gonzales Respitory Rate 2018-08-08 19:35:00 Erik Nelson Height 2018-08-08 19:35:00 165.1 cm Didi Gonzales BMI Calculated 2018-08-08 19:35:00 Erik Nelson Weight 2018-08-08 19:35:00 Didi Gonzales Procedures Procedure Date / Time Performed Performing Clinician Kimber owen CT of abdomen and pelvis without contrast 2020-07-30 00:00:00 [facility] Diabetic Retinopathy Study 7 field stere oscopic fundus photography<sup>1, 2</sup> 2019-05-15 05:00:00 Didi Gonzales Exercise stress test<sup>3</sup> 2018-10-18 06:00:00 [facility] 7 field stereoscopic fundus photography<sup>2</sup> 2018-03-23 00:00:00 Didi Gonzales Colonoscopy 2010-10-23 00:00:00 Didi shaw Plan of Care Planned Activity Planned Date Details Comments Source Instructions Kidney Stones [facility] Encounters Start Date/Time End Date/Time Encounter Type Admission Type Att[facility] Facility Care Department Encounter ID Source 2020-07-30 05:50:00 2020-07-30 06:57:00 Departed Emergency Room 1 Charlie Khoury [facility] [id number] [facility] I [facility] 2019-10-22 13:19:45 2019-10-23 23:59:59 [facility]patient [facility] [id number] 2019-10-21 10:33:32 2019-10-22 23:59:59 [facility]patient [facility] [id number] 2019-10-21 10:33:21 2019-10-22 23:59:59 Outpatient [facility] [id number] 2019-10-21 10:31:52 2019-10-22 23:59:59 Outpatient [facility] [id number] 2019-07-25 08:02:08 2019-07-26 23:59:59 Outpatient [facility] [id number] 2019-07-08 07:30:50 2019-07-09 23:59:59 Outpatient [facility] [id number] 2019-04-26 08:30:00 2019-04-26 23:59:59 Outpatient Devi Coffey [facility] [id number] 2019-02-08 10:36:00 2019-02-09 23:59:59 Outpatient [facility] [id number] 2018-12-24 14:15:00 2018-12-24 23:59:59 Outpatient Devi Coffey [facility] [id number] 2018-11-30 11:45:00 2018-11-30 23:59:59 Outpatient Devi Coffey [facility] [id number] 2018-11-30 11:45:00 2018-11-30 23:59:59 Outpatient Devi Coffey [facility] [id number] 2018-08-22 13:00:00 2018-08-22 23:59:59 Outpatient Devi Coffey [facility] [id number] 2018-08-08 13:30:00 2018-08-08 23:59:59 Outpatient Devi Coffey [facility] [id number] Results Test Description Test Time Test Comments Results Result Comments Source CT ABDOMEN/PELVIS WO 2020-07-30 06:16:00 [place] [address] Patient Name: LANDON GREWAL MR #: [id number] : 1945 Age/Sex: 75/M Req #: [id number] [facility] Physician: Ordered by: AMANDO WRIGHT MD Report #: [id number] Location: Room/Bed: Procedure: [id number] CT/CT ABDOMEN/PELVIS WO Exam Date: 07/30/20 Exam Time: 0555 REPORT STATUS: Signed EXAM: CT Abdomen and Pelvis WITHOUT contrast INDICATION: LLQ PAIN, PT IS ALLERGIC TO IODINE COMPARISON: None. TECHNIQUE: Abdomen and pelvis were scanned utilizing a multidetector helical scanner from the lung base to the pubic symphysis without admi nistration of IV contrast. Absence of intravenous contrast decreases sensitivity for detection of focal lesions and vascular pathology. Coronal and sagittal reformations were obtained. Routine protocol was performed. IV CONTRAST: None ORAL CONTRAST: None COMPLICATIONS: None FINDINGS: LOWER THORAX: Mild dependent atelectasis. HEPATOBILIARY: No significant abnormality. GALLBLADDER: No radio-opaque stones or sludge. No wall thickening. SPLEEN: No splenomegaly. PANCREAS: No focal masses or ductal dilatation. ADRENALS: No adrenal nodules KIDNEYS/URETERS: 4 mm calculus in the distal left ureter with resultant mild hydroureteronephrosis and perinephric fat stranding. GI TRACT: No abnormal distention, wall thickening, or evidence of bowel obstruction. Appendix is not clearly identified. There is however no fat stranding or adenopathy in the right lower quadrant to suggest appendicitis. PELVIC ORGANS/BLADDER: Prostate is mildly enlarged. LYMPH NODES: No lymphadenopathy. VESSELS: Unremarkable. PERITONEUM / RETROPERITONEUM: No free air or fluid. BONES: There are degenerative changes in the spine. IMPRESSION: 4 mm calculus in the distal left ureter with mild left hydroureteronephrosis. Signed by: Howard Marti MD on 07/30/2020 6:26 AM Dictated By: HOWARD MARTI MD 5 Transcribed By: NALINI on 07/30/20625 COPY TO: AMANDO WRIGHT MD Urine color determination 2020-07-30 05:38:00 Test Item Urine Color (test code = 5778-6) YELLOW YELLOW [facility] [id number] 05:38:00* Test Item Value Reference Range Interpretation Comments Urine Clarity (test code = 51893-8) CLEAR CLEAR [facility] by Test strip 2020-07-30 05:38:00* Test Item Value Reference Range Interpretation Comments Urine Specific [place] (test code = 5811-5) >=1.030 1.010-1.02 5 [facility] pH measurement by automated test [id number] 05:38:00* Test Item Value Reference Range Interpretation Comments Urine pH (test code = 20945-9) 5.5 5-7 [facility] leukocyte esterase detection by [id number] 05:38:00* Test Item Value Reference Range Interpretation Comments Urine Leukocyte Esterase (test code = 5799-2) NEGATIVE NEGATIVE [facility] nitrite [id number] 05:38:00* Test Item Value Reference Range Interpretation Comments Urine Nitrite (test code = 57673-2) NEGATIVE NEGATIVE [facility] protein measurement by test strip (mass/volume)2020-07-30 05:38:00* Test Item Value Reference Range Interpretation Comments Urine Protein (test code = 5804-0) 2+ NEGATIVE [facility] glucose [id number] 05:38:00* Test Item Value Reference Range Interpretation Comments Urine Glucose (UA) (test code = 2349-9) NEGATIVE NEGATIVE [facility] ketones detection by automated test [id number] 05:38:00* Test Item Value Reference Range Interpretation Comments Urine Ketones (test code = 24840-5) 1+ NEGATIVE [facility] urobilinogen measurement by test strip (mass/volume)2020-07-30 05:38:00* Test Item Value Reference Range Interpretation Comments Urine Urobilinogen (test code = 95087-8) 0.2 0.2-1 [facility] total bilirubin measurement (mass/volume)2020-07-30 05:38:00* Test Item Value Reference Range Interpretation Comments Urine Bilirubin (test code = 1978-6) SMALL NEGATIVE [facility] erythrocytes [id number] 05:38:00* Test Item Value Reference Range Interpretation Comments Urine Blood (test code = 73487-3) LARGE NEGATIVE [facility] HospitalAutomated urine sediment leukocyte count by microscopy (number/high power field)2020-07-30 05:38:00* Test Item Value Reference Range Interpretation Comments Urine WBC (test code = 5821-4) 0-5 0-5 [facility] HospitalErythrocytes detection in urine sediment by light [id number] 05:38:00* Test Item Value Reference Range Interpretation Comments Urine RBC (test code = 41926-6) >50 0-5 [facility] HospitalBacteria detection in urine sediment by light [id number] 05:38:00* Test Item Value Reference Range Interpretation Comments Urine Bacteria (test code = 44616-6) MODERATE NONE [facility] HospitalEpithelial cells detection in urine sediment by light rnqmllqcxy4557-43-58 05:38:00* Test Item Value Reference Range Interpretation Comments Urine Epithelial Cells (test code = 90951-2) FEW NONE [facility] leukocytes automated count (number/volume)2020-07-30 05:37:00* Test Item Value Reference Range Interpretation Comments White Blood Count (test code = 6690-2) 8.25 4.8-10.8 [facility] erythrocytes automated count (number/volume)2020-07-30 05:37:00* Test Item Value Reference Range Interpretation Comments Red Blood Count (test code = 789-8) 4.76 4.3-5.7 [facility] hemoglobin measurement (moles/volume)2020-07-30 05:37:00* Test Item Value Reference Range Interpretation Comments Hemoglobin (test code = 39106-8) 14.1 14.0-18.0 [facility] HospitalAutomated blood hematocrit (volume fraction)2020-07-30 05:37:00* Test Item Value Reference Range Interpretation Comments Hematocrit (test code = 4544-3) 42.8 38.2-49.6 [facility] HospitalAutomated erythrocyte mean corpuscular rglsoo8118-15-34 05:37:00* Test Item Value Reference Range Interpretation Comments Mean Corpuscular Volume (test code = 787-2) 89.9 81-99 [facility] HospitalAutomated erythrocyte mean corpuscular hemoglobin (mass per erythrocyte)2020-07-30 05:37:00* Test Item Value Reference Range Interpretation Comments Mean Corpuscular Hemoglobin (test code = 785-6) 29.6 28-32 [facility] HospitalAutom[facility] erythrocyte mean corpuscular hemoglobin concentration measurement (mass/volume)2020-07-30 05:37:00* Test Item Value Reference Range Interpretation Comments Mean Corpuscular Hemoglobin Concent (test code = 786-4) 32.9 31-35 [facility] HospitalRDW UfvRo-Ggl1829-21-08 05:37:00* Test Item Value Reference Range Interpretation Comments Red Cell Distribution Width (test code = 69793-1) 12.9 11.7 -14.4 [facility] HospitalAutomated blood platelet count (count/volume)2020-07-30 05:37:00* Test Item Value Reference Range Interpretation Comments Platelet Count (test code = 777-3) 253 140-360 [facility] HospitalAutomated blood segmented neutrophil count as percentage of total atwqsurdge7008-92-59 05:37:00* Test Item Value Reference Range Interpretation Comments Neutrophils (%) (Auto) (test code = 60114-4) 59.6 38.7-80.0 [facility] HospitalAutomated blood lymphocyte count as percentage ot total tyejnsziul7694-32-91 05:37:00* Test Item Value Reference Range Interpretation Comments Lymphocytes (%) (Auto) (test code = 736-9) 31.8 18.0-39.1 [facility] HospitalAutomated blood monocyte count as percentage of total almmpqujzl0775-78-60 05:37:00* Test Item Value Reference Range Interpretation Comments Monocytes (%) (Auto) (test code = 5905-5) 6.5 4.4-11.3 [facility] HospitalAutomated blood eosinophil count as percentage of total tvgampedtf8687-94-22 05:37:00* Test Item Value Reference Range Interpretation Comments Eosinophils (%) (Auto) (test code = 713-8) 1.2 0.0-6.0 [facility] HospitalAutomated blood basophil count as percentage of total jiizaqtdnn7118-59-20 05:37:00* Test Item Value Reference Range Interpretation Comments Basophils (%) (Auto) (test code = 706-2) 0.5 0.0-1.0 [facility] HospitalFluoroscopic procedure less than one hour bjfzinzi0904-22-48 05:37:00* Test Item Value Reference Range Interpretation Comments IM GRANULOCYTES % (test code = IM GRANULOCYTES %) 0.4 0.0- 1.0 [facility] HospitalAutomated blood neutrophil count 2020-07-30 05:37:00* Test Item Value Reference Range Interpretation Comments Neutrophils # (Auto) (test code = 751-8) 4.9 2.1-6.9 [facility] HospitalBlood lymphocytes count (number/volume) 2020-07-30 05:37:00* Test Item Value Reference Range Interpretation Comments Lymphocytes # (Auto) (test code = 49129-8) 2.6 1.0-3.2 [facility] HospitalBlood monocytes automated count (number/volume)2020-07-30 05:37:00* Test Item Value Reference Range Interpretation Comments Monocytes # (Auto) (test code = 742-7) 0.5 0.2-0.8 [facility] HospitalAutomated blood eosinophil count 2020-07-30 05:37:00* Test Item Value Reference Range Interpretation Comments Eosinophils # (Auto) (test code = 711-2) 0.1 0.0-0.4 [facility] HospitalAutomated blood basophil count (count/volume)2020-07-30 05:37:00* Test Item Value Reference Range Interpretation Comments Basophils # (Auto) (test code = 704-7) 0.0 0.0-0.1 [facility] HospitalFluoroscopic procedure less than one hour jkeoaant9184-81-74 05:37:00* Test Item Value Reference Range Interpretation Comments Absolute Immature Granulocyte (auto (maria t t code = Absolute Immature Granulocyte (auto) 0.03 0-0.1 [facility]rum or plasma sodium measurement (moles/volume)2020-07-30 05:37:00* Test Item Value Reference Range Interpretation Comments Sodium Level (test code = 2951-2) 141 136-145 [facility]ererum or plasma potassium measurement (moles/volume)2020-07-30 05:37:00* Test Item Value Reference Range Interpretation Comments Potassium Level (test code = 2823-3) 3.6 3.5-5.1 [facility]rum or plasma chloride measurement (moles/volume)2020-07-30 05:37:00* Test Item Value Reference Range Interpretation Comments Chloride Level (test code = 2075-0) 106 98-107 [facility] carbon dioxide, total measurement (moles/volume)2020-07-30 05:37:00* Test Item Value Reference Range Interpretation Comments Carbon Dioxide Level (test code = 2028-9) 21 22-29 [facility] anion [id number] 05:37:00* Test Item Value Reference Range Interpretation Comments Anion Gap (test code = 87448-3) 17.6 8-16 [facility] urea nitrogen measurement (mass/volume)2020-07-30 05:37:00* Test Item Value Reference Range Interpretation Comments Blood Urea Nitrogen (test code = 3094-0) 17 7-26 [facility] creatinine measurement (mass/volume)2020-07-30 05:37:00* Test Item Value Reference Range Interpretation Comments Creatinine (test code = 2160-0) 0.90 0.72-1.25 [facility] urea nitrogen/creatinine mass [id number] 05:37:00* Test Item Value Reference Range Interpretation Comments BUN/Creatinine Ratio (test code = 3097-3) 19 6-25 [facility] HospitalEstimated glomerular filtration rate (GFR) [id number] 05:37:00* Test Item Value Reference Range Interpretation Comments Estimat Glomerular Filtration Rate (test code = 398524474) > 60 >60 Ranges were taken from the National Kidney Disease Education Program and the [facility] literature.Reference ranges:60 or greater: [id number] ( for 3 consecutive months): Chronic kidney disease 15 or less: Kidney failureNacogdoches Memorial HospitalGlucose [id number] 05:37:00* Test Item Value Reference Range Interpretation Comments Glucose Level (test code = NWG1201) 143 74-118 [facility] calcium measurement (mass/volume)2020-07-30 05:37:00* Test Item Value Reference Range Interpretation Comments Calcium Level (test code = 68100-8) 9.1 8.4-10.2 [facility] total bilirubin measurement (mass/volume)2020-07-30 05:37:00* Test Item Value Reference Range Interpretation Comments Total Bilirubin (test code = 1975-2) 0.3 0.2-1.2 [facility] HospitalFluoroscopic procedure less than one hour [id number] 05:37:00* Test Item Value Reference Range Interpretation Comments Aspartate Amino Transf (AST/SGOT) (test code = Aspartate Amino Transf (AST/SGOT)) 21 5-34 [facility] alanine aminotransferase measurement (enzymatic activity/volume)2020-07-30 05:37:00* Test Item Value Reference Range Interpretation Comments Alanine Aminotransferase (ALT/SGPT) (test code = 1742-6) 30 0-55 [facility] protein measurement (mass/volume)2020-07-30 05:37:00* Test Item Value Reference Range Interpretation Comments Total Protein (test code = 2885-2) 6.9 6.5-8.1 [facility] albumin measurement (mass/volume)2020-07-30 05:37:00* Test Item Value Reference Range Interpretation Comments Albumin (test code = 1751-7) 3.7 3.5-5.0 [facility] HospitalPlasma globulin measurement (mass/volume) 2020-07-30 05:37:00* Test Item Value Reference Range Interpretation Comments Globulin (test code = 00628-6) 3.2 2.3-3.5 [facility] albumin/globulin mass [id number] 05:37:00* Test Item Value Reference Range Interpretation Comments Albumin/Globulin Ratio (test code = 1759-0) 1.2 0.8-2.0 [facility] alkaline phosphatase measurement (enzymatic activity/volume)2020-07-30 05:37:00* Test Item Value Reference Range Interpretation Comments Alkaline Phosphatase (test code = 6768-6) 61 40-150 [facility] amylase measurement (enzymatic activity/volume)2020-07-30 05:37:00* Test Item Value Reference Range Interpretation Comments Amylase Level (test code = 1798-8) 93 25-125 [facility] lipase measurement (enzymatic activity/volume)2020-07-30 05:37:00* Test Item Value Reference Range Interpretation Comments Lipase (test code = 3040-3) 38 8-78 [facility]
[2020-09-05 12:50] LABS: BASOPHILS % 0.4 % (0.0-1.0); EOSINOPHILS % 0.4 % (0.0-6.0); HEMATOCRIT 39.9 % (38.2-49.6); HEMOGLOBIN 13.1 g/dL (14.0-18.0); LYMPHOCYTES % 10.4 % (18.0-39.1); MEAN CORPUSCULAR HEMOGLOBIN 29.5 pg (28-32); MEAN CORPUSCULAR HGB CONC 32.8 g/dL (31-35); MEAN CORPUSCULAR VOLUME 89.9 fL (81-99); MONOCYTES # (AUTO) 0.6 (0.2-0.8); MONOCYTES % 6.7 % (4.4-11.3); NEUTROPHILS # (AUTO) 7.6 (2.1-6.9); NEUTROPHILS % 81.7 % (38.7-80.0); PLATELET COUNT 232 x10e3/uL (140-360); RED BLOOD COUNT 4.44 x10e6/uL (4.3-5.7); RED CELL DISTRIBUTION WIDTH 13.4 % (11.7-14.4)
[2020-09-05 13:00] LABS: BILIRUBIN,URINE NEGATIVE (NEGATIVE); CLARITY,URINE CLEAR (CLEAR); COLOR,URINE YELLOW (YELLOW); KETONES,URINE NEGATIVE (NEGATIVE); LEUKOCYTE ESTERASE ,URINE NEGATIVE (NEGATIVE); NITRITE,URINE NEGATIVE (NEGATIVE); PROTEIN,URINE DIPSTICK NEGATIVE (NEGATIVE); URINE UROBILINOGEN 0.2 mg/dL (0.2 - 1)
[2020-09-05 13:00] LABS: INR 0.92; PROTHROMBIN TIME 12.8 seconds (11.9-14.5)
[2020-09-05 13:01] LABS: PARTIAL THROMBOPLASTIN TIME 28.1 seconds (23.8-35.5)
[2020-09-05 13:10] LABS: ALANINE AMINOTRANSFERASE 28 IU/L (0-55); ALBUMIN 3.7 g/dL (3.5-5.0); ALBUMIN/GLOBULIN RATIO 1.1 (0.8-2.0); ALKALINE PHOSPHATASE 53 IU/L (40-150); ANION GAP 15.4 mmol/L (8-16); BLOOD UREA NITROGEN 16 mg/dL (7-26); BUN/CREATININE RATIO 15 (6-25); CALCIUM 9.1 mg/dL (8.4-10.2); CARBON DIOXIDE 25 mmol/L (22-29); CHLORIDE 102 mmol/L (98-107); CREATININE, SERUM 1.06 mg/dL (0.72-1.25); EST GLOMERULAR FILTRATION RATE > 60 ML/MIN (60-); GLUCOSE 112 mg/dL (74-118); POTASSIUM 4.4 mmol/L (3.5-5.1); SODIUM 138 mmol/L (136-145)
[2020-09-05 13:11] LABS: BACTERIA,URINE FEW /HPF; EPITHELIAL CELLS,URINE FEW /LPF; WBC,URINE (MAN) 0-5 /HPF (0-5)
--- NOTE | 2020-09-05 14:19 | Emergency Department Note ---
History of Present Illnes History of Present Illness Chief Complaint: Flank Pain History of Present Illness This is a 75 year old male LAST NIGHT STARTED HAVING LEFT FLANK PAIN. PAINFUL TO TOUCH. "FEEL LIKE PAIN IS INSIDE" DENIES ANY N/V/D 07/30 SEEN HERE AND DX WITH 4MM DISTAL LEFT URETER/MILD HYDROURETERONEPHROSIS PATIENT SCHEDULED 09/14 WITH UROLOGIST. Historian: Patient Arrival Mode: Car Additional Treatment LEAD PROGRAMMER: NONE Show Host Or Hostess Required: No Onset (how long ago): hour(s) (LAST NIGHT ~5PM) Location: LEFT FLANK Quality: PAIN Radiation: Reports non-radiation Severity: severe Onset quality: sudden Timing of current episode: constant Progression: unchanged Chronicity: recurrent (SIMILAR TO KIDNEY STONE ~ 1MONTH AGO) Context: Denies recent illness Relieving factors: none Exacerbating factors: none Associated symptoms: Reports denies other symptoms Past Medical/Family History Physician Review I have reviewed the patient's past medical and family history. Any updates have been documented here. Past Medical History Recent Fever: No Clinical Suspicion of Infectio: No New/Unexplained Change in Ment: No Past Medical History: Hypertension, Diabetes, Cancer, Hyperlipedemia Other Medical History: PROSTATE CANCER Past Surgical History: None Social History Smoking Cessation: Never Smoker Counseling Performed: No Alcohol Use: None Any Illegal Drug Use: No TB Exposure/Symptoms: No Physically hurt or threatened: No Family History Family history of heart diseas: No Other Any Pre-Existing Lines (PICC,: No Review of Systems Review of Systems Constitutional: Reports no symptoms EENTM: Reports no symptoms Cardiovascular: Reports no symptoms Respiratory: Reports no symptoms Gastrointestinal: Reports no symptoms Genitourinary: Reports pain (LEFT FLANK) Musculoskeletal: Reports no symptoms Integumentary: Reports no symptoms Neurological: Reports no symptoms Psychological: Reports no symptoms Endocrine: Reports no symptoms Hematological/Lymphatic: Reports no symptoms Physical Exam Related Data Allergies: Coded Allergies: iodine (Verified Allergy, Intermediate, 09/05/20) Triage Vital Signs Vital Signs Date Time Temp Pulse Resp B/P (MAP) Pulse Ox O2 Delivery O2 Flow Rate FiO2 09/05/20 12:18 97.7 72 18 121/71 100 Room Air Vital signs reviewed: Yes Physical Exam CONSTITUTIONAL Constitutional: Present well-developed, Present well-nourished HENT HENT: Present normocephalic, Present atraumatic, Present oropharynx clear/moist, Present nose normal HENT L/R: Present left ext ear normal, Present right ext ear normal EYES Eyes: Reports PERRL, Reports conjunctivae normal NECK Neck: Present ROM normal PULMONARY Pulmonary: Present effort normal, Present breath sounds normal CARDIOVASCULAR Cardiovascular: Present regular rhythm, Present heart sounds normal, Present capillary refill normal, Present normal rate GASTROINTESTINAL Abdominal: Present soft, Present nontender, Present bowel sounds normal; Absent left CVA tenderness (SAYS THIS IS WHERE PAIN IS BUT IT IS "INTERNAL", NO TTP), Absent right CVA tenderness GENITOURINARY Genitourinary: Present exam deferred SKIN Skin: Present warm, Present dry MUSCULOSKELETAL Musculoskeletal: Present ROM normal NEUROLOGICAL Neurological: Present alert, Present oriented x 3, Present no gross motor or sensory deficits PSYCHOLOGICAL Psychological: Present mood/affect normal, Present judgement normal Results Laboratory Result Diagram: 09/05/20 1233 09/05/20 1233 Laboratory Laboratory Tests Test 09/05/20 12:33 09/05/20 12:25 White Blood Count 9.26 x10e3/uL (4.8-10.8) Red Blood Count 4.44 x10e6/uL (4.3-5.7) Hemoglobin 13.1 g/dL (14.0-18.0) Hematocrit 39.9 % (38.2-49.6) Mean Corpuscular Volume 89.9 fL (81-99) Mean Corpuscular Hemoglobin 29.5 pg (28-32) Mean Corpuscular Hemoglobin Concent 32.8 g/dL (31-35) Red Cell Distribution Width 13.4 % (11.7-14.4) Platelet Count 232 x10e3/uL (140-360) Neutrophils (%) (Auto) 81.7 % (38.7-80.0) Lymphocytes (%) (Auto) 10.4 % (18.0-39.1) Monocytes (%) (Auto) 6.7 % (4.4-11.3) Eosinophils (%) (Auto) 0.4 % (0.0-6.0) Basophils (%) (Auto) 0.4 % (0.0-1.0) Neutrophils # (Auto) 7.6 (2.1-6.9) Lymphocytes # (Auto) 1.0 (1.0-3.2) Monocytes # (Auto) 0.6 (0.2-0.8) Eosinophils # (Auto) 0.0 (0.0-0.4) Basophils # (Auto) 0.0 (0.0-0.1) Absolute Immature Granulocyte (auto 0.04 x10e3/uL (0-0.1) Prothrombin Time 12.8 seconds (11.9-14.5) Prothromb Time International Ratio 0.92 Activated Partial Thromboplast Time 28.1 seconds (23.8-35.5) Sodium Level 138 mmol/L (136-145) Potassium Level 4.4 mmol/L (3.5-5.1) Chloride Level 102 mmol/L (98-107) Carbon Dioxide Level 25 mmol/L (22-29) Anion Gap 15.4 mmol/L (8-16) Blood Urea Nitrogen 16 mg/dL (7-26) Creatinine 1.06 mg/dL (0.72-1.25) Estimat Glomerular Filtration Rate > 60 ML/MIN (60-) BUN/Creatinine Ratio 15 (6-25) Glucose Level 112 mg/dL (74-118) Calcium Level 9.1 mg/dL (8.4-10.2) Total Bilirubin 0.4 mg/dL (0.2-1.2) Aspartate Amino Transf (AST/SGOT) 26 IU/L (5-34) Alanine Aminotransferase (ALT/SGPT) 28 IU/L (0-55) Alkaline Phosphatase 53 IU/L (40-150) Total Protein 7.1 g/dL (6.5-8.1) Albumin 3.7 g/dL (3.5-5.0) Globulin 3.4 g/dL (2.3-3.5) Albumin/Globulin Ratio 1.1 (0.8-2.0) Urine Color Yellow (YELLOW) Urine Clarity Clear (CLEAR) Urine pH 6 (5 - 7) Urine Specific [place] >=1.030 (1.010-1.025) Urine Protein Negative (NEGATIVE) Urine Glucose (UA) Negative (NEGATIVE) Urine Ketones Negative (NEGATIVE) Urine Blood Moderate (NEGATIVE) Urine Nitrite Negative (NEGATIVE) Urine Bilirubin Negative (NEGATIVE) Urine Urobilinogen 0.2 mg/dL (0.2 - 1) Urine Leukocyte Esterase Negative (NEGATIVE) Urine RBC 6-10 /HPF (0-5) Urine WBC 0-5 /HPF (0-5) Urine Epithelial Cells Few /LPF (NONE) Urine Bacteria Few /HPF (NONE) Lab results reviewed: Yes Imaging Imaging results reviewed: Yes Assessment & Plan Medical Decision Making [facility] PT WITH H/O KIDNEY STONE ~ 1MONTH AGO PRESENTS WITH SIMILAR PAIN LEFT FLANK - CBC, CHEM, UA/CX, CT ABD/PAIN - R/O URETEROLITHIASIS, UTI/PYELONEPHRITIS, RENAL INSUFF Reassessment Reassessment IMPROVED WITH MEDS, CT NOTED - ADMIT TO DR XIE, SPOKE WITH DR RIOS ALSO - GIVE CLEAR LIQ DIET, WILL SEE PT AND DECIDE ON STENT Assessment & Plan Final Impression: (1) Ureterolithiasis (2) Hydroureteronephrosis Depart Disposition: ADMITTED Last Vital Signs Date Time Temp Pulse Resp B/P (MAP) Pulse Ox O2 Delivery O2 Flow Rate FiO2 09/05/20 12:18 97.7 72 18 121/71 100 Room Air Medications in the ED Morphine Sulfate 2 mg ONCE IV Last administered on 09/05/20at 12:48; Admin Dose 2 MG; Start 09/05/20 at 12:30; Stop 09/05/20 at 14:00; Status DC Ondansetron HCl 4 mg ONCE IV Last administered on 09/05/20at 12:48; Admin Dose 4 MG; Start 09/05/20 at 12:30; Stop 09/05/20 at 14:00; Status DC Sodium Chloride 1,000 ml @ 0 mls/hr Q0M STAT IV Last administered on 09/05/20at 12:48; Admin Dose 1,000 MLS/HR; Start 09/05/20 at 12:25; Stop 09/05/20 at 12:26; Status DC Ketorolac Tromethamine 15 mg ONCE IV Last administered on 09/05/20at 12:48; Admin Dose 15 MG; Start 09/05/20 at 12:30; Stop 09/05/20 at 13:59; Status DC CARLYLE FONTENOT MD Sep 05, 2020 14:18
--- NOTE | 2020-09-05 14:49 | Diagnostic Imaging Report ---
ADDENDUM #1 IMPRESSION: 2 mm nonobstructive stone in the midpole of the right kidney. Signed by: Jesi Calderon MD on 09/05/2020 2:50 PM ORIGINAL REPORT EXAM: CT Abdomen and Pelvis WITHOUT contrast INDICATION: Stone Protocol COMPARISON: CT abdomen and pelvis on 07/30/2020. TECHNIQUE: Abdomen and pelvis were scanned utilizing a multidetector helical scanner from the lung base to the pubic symphysis without administration of IV contrast. Absence of intravenous contrast decreases sensitivity for detection of focal lesions and vascular pathology. Coronal and sagittal reformations were obtained. Routine protocol was performed. IV CONTRAST: None ORAL CONTRAST: None COMPLICATIONS: None RADIATION DOSE: Total DLP: 390 mGy*cm Estimated effective dose: (DLP x 0.015 x size factor) mSv CTDIvol has been reviewed. It is below the limits set by the Radiation Protocol Committee (RPC). Dose modulation, iterative reconstruction, and/or weight based adjustment of the mA/kV was utilized to reduce the radiation dose to as low as reasonably achievable. FINDINGS: LINES and TUBES: None. LOWER THORAX: Unremarkable HEPATOBILIARY: No focal hepatic lesions. No biliary ductal dilation. GALLBLADDER: No radio-opaque stones or sludge. No wall thickening. SPLEEN: No splenomegaly. PANCREAS: No focal masses or ductal dilatation. ADRENALS: No adrenal nodules KIDNEYS/URETERS: No hydronephrosis. No cystic or solid mass lesions. 5 mm stone in the distal left ureter with mild left hydroureteronephrosis. There is left perinephric fat stranding suggestive of forniceal rupture. There is a 2 mm nonobstructive stone in the midpole of the right kidney. GI TRACT: No abnormal distention, wall thickening, or evidence of bowel obstruction. Appendix is not clearly identified. There is however no fat stranding or adenopathy in the right lower quadrant to suggest appendicitis. PELVIC ORGANS/BLADDER: The prostate gland is mildly enlarged measuring approximately 4.8 x 5.5 cm. Redemonstration of multiple metallic densities in the pelvis. LYMPH NODES: No lymphadenopathy. VESSELS: Scattered mild arterial vascular calcifications. PERITONEUM / RETROPERITONEUM: No free air or fluid. BONES: There are degenerative changes in the spine. SOFT TISSUES: Fat-containing umbilical hernia. The soft tissues are otherwise normal. IMPRESSION: 1. 5 mm obstructive stone in the distal left ureter with mild left hydroureteronephrosis. Unable to determine if this represents a new stone versus the previously identified left ureteral stone with slight interval advancement. Consider urology consultation. 2. Nonspecific perinephric fat stranding on the left is suggestive of forniceal rupture. 3. Mild prostatomegaly. Signed by: Jesi Calderon MD on 09/05/2020 2:46 PM
[2020-09-05] MEDS ORDERED: ONDANSETRON HCL INJ 2MG/ML 2ML 2 MG/ML VIAL IV PRN (15:15)
--- OUTSIDE RECORDS SUMMARY | 2020-09-05 15:33 | XMS REPORT | Continuity of Care Document ---
Author Author [facility] t Organization [facility] Address [address] [place] [address] Phone Unavailable Care Team Providers Care Site Administrator Name Role Phone PRINCE ANGULO PCP Tico FONTENOT Attphys Unavailable Lora Khoury Attphys Unavailable Kacey Coffey Attphys Payers Payer Name Policy Type Policy Number Effective Date Expiration Date [facility] [id number] 2019 00:00:00 [facility] Problems Condition Name Condition Details Condition Category Status Onset Date Resolution Date Last Treatment Date Treating Clinician Comments Source Abdominal pain Problem Active [facility] Calculus of ureter Problem Active [facility] Benign hypertension (disorder) Benign hypertension (disorder) Active Problem 10/25/2019 [facility] Group Problem Active 2019-10-25 23:22:59 [facility] Diabetic complication (disorder) Diabetic complication (disorder) Active Problem 10/25/2019 Medical Group Problem Active 2019-10-25 23:22:59 [facility] History of malignant neoplasm of prostate (situation) History of malignant neoplasm of prostate (situation) Active Problem 10/25/2019 Medical Group Problem Active 2019-10-25 23:22:59 [facility] [place] Mixed hyperlipidemia (disorder) Mixed hyperlipidemia (disorder) Active Problem 10/25/2019 Medical Group Problem Active 2019-10-25 23:22:59 [facility] Allergies, Adverse Reactions, Alerts Allergy Name Allergy Type Status Severity Reaction(s) Onset Date Inacti ve Date Treating Clinician Comments Source iodine iodine Active [facility] Social History Social Habit Start Date Stop Date Quantity Comments Source Social History 2018-08-08 19:38:22 2018-08-08 19:38:22 [facility] Sex Assigned At 1945 00:00:00 1945 00:00:00 Male [facility] Medications Ordered Medication Name Filled Medication Name Start Date Stop Da te Current Medication? Ordering Clinician Indication Dosage Frequency Signature (SIG) Comments Components Source rosuvastatin 10 mg oral tablet 2019-10-23 15:35:56 Yes See Instructions, # 90 tab, TOME PHIL TABLETA POR VIA ORAL AL ACOSTARSE, Pharmacy: [facility]/pharmacy #6000 [facility] omeprazole 40 mg oral delayed release capsule 2019-07-26 02:15:4 7 Yes See Instructions, # 90 unknown unit, MERARY E PHIL CAPSULA TODOS [facility], Pharmacy: [facility]/pharmacy 6000 [facility] ONE TOUCH ULTRA BLUE TEST STRP 2019-07-08 12:56:58 Yes See Instructions, # 100 strip, Refill(s) 12, USE TODOS [facility] Z[facility], Pharmacy: [facility]/pharmacy #6000 [facility] rosuvastatin 10 mg oral tablet 2019-04-26 14:20:49 Yes See Instructions, TOME PHIL TABLETA TODOS [place] AL ACOSTARSE, # 90 tab, 1 Refill(s), Pharmacy: [facility]/pharmacy #6000 [facility] Metformin hydrochloride 500 MG Oral Tablet 2019-04-26 14:20:42 Yes 500 mg = 1 tab, PO, BID-Meals, # 180 tab, 1 Refill(s), Pharmacy: [facility]/pharmacy 6000 [facility] Hydrochlorothiazide 12.5 MG / Losartan Potassium 50 MG Oral Tablet 2019-04-26 14:19:52 Yes See Instru ctions, TOME PHIL TABLETA TODOS [place], # 90 tab, 1 Refill(s), Pharmacy: [facility]/pharmacy #6000 [facility] Atenolol 100 MG Oral Tablet 2019-04-26 14:19:50 Yes See Instructions, TOME PHIL TABLETA TODOS [place], # 90 tab, 1 Refill(s), Pharmacy: [facility]/pharmacy 6000 [facility] Diclofenac Sodium 0.01 MG/MG Topical Gel 2019-04-26 14:19:00 Yes 4 gm = 1 appl, TOP, BID, PRN Apply to affected area, # 100 gm, 1 Refill(s), Pharmacy: [facility]/pharmacy #6000 [facility] meloxicam 15 mg oral tablet 2019-04-26 14:18:00 Yes 15 mg = 1 tab, PO, Daily, # 30 tab, 0 Refill(s), Pharmacy: [facility]/pharmacy #6000 [facility] Metformin hydrochloride 500 MG Oral Tablet 2019-02-08 18:26:00 Yes 500 mg = 1 tab, PO, BID-Meals, # 180 tab, 1 Refill(s), Pharmacy: [facility]/pharmacy #6000 [facility] Hydrochlorothiazide 12.5 MG / Losartan Potassium 50 MG Oral Tablet 2019-01-11 02:36:03 Yes See Instru ctions, # 90 tab, Refill(s) 1, TOME PHIL TABLETA TODOS [place]IEGLER, Pharmacy: [facility]/pharmacy #6000 [facility] omeprazole 40 mg oral delayed release capsule 2019-01-11 02:36:0 3 Yes See Instructions, # 90 unknown unit, MERARY E PHIL CAPSULA TODOS [place] [facility], Pharmacy: [facility]/pharmacy #Clarissa [facility] Metformin hydrochloride 500 MG Oral Tablet 2019-01-11 02:36:03 Yes See Instructions, # 180 tab, Refill(s) 1, TOME PHIL TABLETA POR VIA ORAL DOS VECES AL SAVANNAH, Pharmacy: [facility]/pharmacy #6000 [facility] Atenolol 100 MG Oral Tablet 2019-01-11 02:36:03 Yes See Instructions, # 90 tab, Refill(s) 1, TOME PHIL TABLETA TODOS [place]IE[place], Pharmacy: [facility]/pharmacy #6000 [facility] levocetirizine 5 mg oral tablet 2018-12-30 17:51:30 Yes See Instructions, # 30 tab, TOME PHIL TABLETA TODOS [place], Pharmacy: [facility]/pharmacy #6000 [facility] levocetirizine dihydrochloride 5 MG Oral Tablet [Xyzal] 2018-11-30 17:57:00 No 5 mg = 1 tab, P O, QPM, # 30 tab, 0 Refill(s), Pharmacy: [facility]/pharmacy #6000 [facility] Codeine Phosphate 2 MG/ML / Guaifenesin 20 MG/ML Oral Soluti on [Cheratussin] 2018-11-30 17:57:00 No 10 ml, PO, Q8H, PRN for cough, X 14 day, # 120 mL, 0 Refill(s) Didi Gonzales rosuvastatin 10 mg oral tablet 2018-11-05 02:57:27 Yes See Instructions, # 90 tab, Refill(s) 1, TOMTimothy VILLARREAL TABLETA SHANICE ZIEGLER AL ACOSTARSE, Pharmacy: [facility]/pharmacy #Clarissa Gonzales omeprazole 40 mg oral delayed release capsule 2018-11-05 02:57:2 7 No See Instructions, # 90 unknown unit, MERARY E PHIL CAPSULA SHANICE ZIEGLER, Pharmacy: [facility]/pharmacy #Clarissa [facility] Hydrochlorothiazide 12.5 MG / Losartan Potassium 50 MG Oral Tablet 2018-08-22 18:21:00 No 1 tab, PO, Daily, # 90 tab, 1 Refill(s), Pharmacy: [facility]/pharmacy #[facility] tadalafil 5 MG Oral Tablet [Cialis] 2018-08-08 20:23:00 Yes 5 mg = 1 tab, PO, Daily, Benign Prostatic Hyperplasia, # 30 tab, 0 Refill(s), Pharmacy: [facility]/pharmacy #[facility] rosuvastatin 10 mg oral tablet 2018-08-08 20:23:00 No 10 mg = 1 tab, PO, Bedtime, # 90 tab, 0 Refill(s), Pharmacy: [facility]/pharmacy #Clarissa Gonzales omeprazole 40 mg oral delayed release capsule 2018-08-08 20:23:0 0 No 40 mg = 1 cap, PO, Daily, # 90 cap, 0 Refill(s), Pharm acy: [facility]/pharmacy #[facility] Metformin hydrochloride 500 MG Oral Tablet 2018-08-08 20:23:00 No 500 mg = 1 tab, PO, BID-Meals, # 180 tab, 1 Refill(s), Pharmacy: [facility]/pharmacy #[facility] Hydrochlorothiazide 12.5 MG / valsartan 80 MG Oral Tablet 2018-08-08 20:23:00 No 1 tab, PO, Tonya ly, # 90 tab, 1 Refill(s), Pharmacy: [facility]/pharmacy #[facility]issa [facility] Atenolol 100 MG Oral Tablet 2018-08-08 20:23:00 No 100 mg = 1 tab, PO, Daily, # 90 tab, 1 Refill(s), Pharmacy: [facility]/pharmacy #[facility] rosuvastatin 10 mg oral tablet 2018-08-08 19:36:00 [...] Source Body Temperature 2020-07-30 06:49:00 97.5 [degF] [facility] Weight 2020-07-30 05:33:00 160 [lb_av] [facility] BMI (Body Mass Index) 2020-07-30 05:33:00 25.8 kg/m2 [facility] Height 2019-04-26 13:35:00 170.18 cm Didi Gonzales Weight 2019-04-26 13:35:00 Didi Gonzales BMI Calculated 2019-04-26 13:35:00 Erik Nelson Heart Rate 2019-04-26 13:35:00 Didi Gonzales Systolic (mm Hg) 2019-04-26 13:35:00 Dariel cintial [place] Diastolic (mm Hg) 2019-04-26 13:35:00 Jose M orial [facility] Respitory Rate 2019-04-26 13:35:00 Erik al Christian Systolic (mm Hg) 2018-12-24 16:38:00 Dariel rial [place] Diastolic (mm Hg) 2018-12-24 16:38:00 Mem o[facility] [place] Height 2018-12-24 16:22:00 165.1 cm [facility] [place] Weight 2018-12-24 16:22:00 [facility] [place] BMI Calculated 2018-12-24 16:22:00 Memori al [place] Heart Rate 2018-12-24 16:22:00 [facility] [place] Respitory Rate 2018-12-24 16:22:00 Memori al [place] Temperature Oral (F) 2018-12-24 16:22:00 97.0 F [facility] Systolic (mm Hg) 2018-12-24 16:22:00 Dariel rial Christian Diastolic (mm Hg) 2018-12-24 16:22:00 Mem orial [facility] BMI Calculated 2018-11-30 17:43:00 Memori al [place] Weight 2018-11-30 17:43:00 [facility] Height 2018-11-30 17:43:00 167.64 cm [facility] [place] Heart Rate 2018-11-30 17:43:00 [facility] [place] Systolic (mm Hg) 2018-11-30 17:43:00 Dariel rial [place] Diastolic (mm Hg) 2018-11-30 17:43:00 Mem orial [place] Temperature Oral (F) 2018-11-30 17:43:00 97.7 F [facility] Respitory Rate 2018-11-30 17:43:00 Memori al [place] Respitory Rate 2018-08-22 18:08:00 Memori al [place] Temperature Oral (F) 2018-08-22 18:08:00 97.6 F [facility] Heart Rate 2018-08-22 18:08:00 [facility] [place] BMI Calculated 2018-08-22 18:08:00 Memori al [facility] Height 2018-08-22 18:08:00 160.02 cm [facility] [place] Weight 2018-08-22 18:08:00 [facility] Systolic (mm Hg) 2018-08-22 18:08:00 Dariel rial Christian Diastolic (mm Hg) 2018-08-22 18:08:00 Mem orial [place] Temperature Oral (F) 2018-08-08 19:35:00 97.4 F [facility] Systolic (mm Hg) 2018-08-08 19:35:00 Dariel rial [place] Diastolic (mm Hg) 2018-08-08 19:35:00 Jose M Gonzales Heart Rate 2018-08-08 19:35:00 Didi Garibayann Respitory Rate 2018-08-08 19:35:00 Erik Nelson Height 2018-08-08 19:35:00 165.1 cm Didi Gonzales BMI Calculated 2018-08-08 19:35:00 Erik Nelson Weight 2018-08-08 19:35:00 Didi Gonzales Procedures Procedure Date / Time Performed Performing Clinician [facility] e [facility] of abdomen and pelvis without contrast 2020-07-30 00:00:00 [facility] Diabetic Retinopathy Study 7 field stere oscopic fundus photography<sup>1, 2</sup> 2019-05-15 05:00:00 Didi Gonzales Exercise stress test<sup>3</sup> 2018-10-18 06:00:00 [facility] Diabetic Retinopathy Study 7 field stereoscopic fundus photography<sup>2</sup> 2018-03-23 00:00:00 Didi Gonzales Colonoscopy 2010-10-23 00:00:00 Didi sahw Plan of Care Planned Activity Planned Date Details Comments Source Instructions Kidney Stones [facility] Encounters Start Date/Time End Date/Time Encounter Type Admission Type [facility] Emergency Department Facility Care Department Encounter ID Source 2020-07-30 05:50:00 2020-07-30 06:57:00 Departed Emergency Room 1 Charlie Khoury [facility] [id number] [facility] 2019-10-22 13:19:45 2019-10-23 23:59:59 [facility]patient [facility] [id number] 2019-10-21 10:33:32 2019-10-22 23:59:59 Outpatient [facility] [id number] 2019-10-21 10:33:21 2019-10-22 23:59:59 Outpatient [facility] [id number] 2019-10-21 10:31:52 2019-10-22 23:59:59 Outpatient [facility] [id number] 2019-07-25 08:02:08 2019-07-26 23:59:59 Outpatient [facility] [id number] 2019-07-08 07:30:50 2019-07-09 23:59:59 Outpatient [facility] [id number] 2019-04-26 08:30:00 2019-04-26 23:59:59 Outpatient Devi Coffey [facility] [id number] 2019-02-08 10:36:00 2019-02-09 23:59:59 Outpatient [facility] [id number] 2018-12-24 14:15:00 2018-12-24 23:59:59 Outpatient Devi Coffey [facility] [id number] 2018-11-30 11:45:00 2018-11-30 23:59:59 Outpatient Devi Coffey [facility] [id number] 2018-11-30 11:45:00 2018-11-30 23:59:59 Outpatient Devi Coffey [facility] [id number] 2018-08-22 13:00:00 2018-08-22 23:59:59 Outpatient Devi Coffey [facility] [id number] 2018-08-08 13:30:00 2018-08-08 23:59:59 Outpatient Devi Coffey [facility] [id number] Results Test Description Test Time Test Comments Results Result Comments Source CT ABDOMEN/PELVIS WO 2020-09-05 14:09:00 [facility] 1945 Sex: M [place] [address] Patient Name: LANDON GREWAL MR #: [id number] : 1945 Age/Sex: 75/M Req #: [id number] [facility] Physician: Ordered by: CARLYLE FONTENOT MD Report #: [id number] Location: Room/Bed: Procedure: [id number] CT/CT ABDOMEN/PELVIS WO Exam Date: 09/05/20 Exam Time: 1310 REPORT STATUS: Signed ADDENDUM #1 IMPRESSION: 2 mm nonobstructive stone in the midpole of the right kidney. Signed by: Lazaro Louie MD on 09/05/2020 2:50 PM ORIGINAL REPORT EXAM: CT Abdomen and Pelvis WITHOUT contrast INDICATION: Stone Protocol COMPARISON: CT abdomen and pelvis on 07/30/2020. TECHNIQUE: Abdomen and pelvis were scanned utilizing a multidetector helical scanner from the lung base to the pubic symphysis without administration of IV contrast. Absence of intravenous contrast decreases sensitivity for detection of focal lesions and vascular pathology. Coronal and sagittal reformations were obtained. Routine protocol was performed. IV CONTRAST: None ORAL CONTRAST: None COMPLICATIONS: None RADIATION DOSE: Total DLP: 390 mGy*cm Estimated effective dose: (DLP x 0.015 x size factor) mSv CTDIvol has been reviewed. It is below the limits set by the Radiation Protocol Committee (RPC). Dose modulation, iterative reconstruction, and/or weight based adjustment of the mA/kV was utilized to reduce the radiation dose to as low as reasonably achievable. FINDINGS: LINES and TUBES: None. LOWER THORAX: Unremarkable HEPATOBILIARY: No focal hepatic lesions. No biliary ductal dilation. GALLBLADDER: No radio-opaque stones or sludge. No wall thickening. SPLEEN: No splenomegaly. PANCREAS: No focal masses or ductal dilatation. ADRENALS: No adrenal nodules KIDNEYS/URETERS: No hydronephrosis. No cystic or solid mass lesions. 5 mm stone in the distal left ureter with mild left hydroureteronephrosis. There is left perinephric fat stranding suggestive of forniceal rupture. There is a 2 mm nonobstructive stone in the midpole of the right kidney. GI TRACT: No abnormal distention, wall thickening, or evidence of bowel obstruction. Appendix is not clearly identified. There is however no fat stranding or adenopathy in the right lower quadrant to suggest appendicitis. PELVIC ORGANS/BLADDER: The prostate gland is mildly enlarged measuring approximately 4.8 x 5.5 cm. Redemonstration of multiple metallic densities in the pelvis. LYMPH NODES: No lymphadenopathy. VESSELS: Scattered mild arterial vascular calcifications. PERITONEUM / RETROPERITONEUM: No free air or fluid. BONES: There are degenerative changes in the spine. SOFT TISSUES: Fat-containing umbilical hernia. The soft tissues are otherwise normal. IMPRESSION: 1. 5 mm obstructive stone in the distal left ureter with mild left hydrouretero nephrosis. Unable to determine if this represents a new stone versus the previously identified left ureteral stone with slight interval advancement. Consider urology consultation. 2. Nonspecific perinephric fat stranding on the left is suggestive of forniceal rupture. 3. Mild prostatomegaly. Signed by: Lazaro Louie MD on 09/05/2020 2:46 PM Dictated By: LAZARO LOUIE MD 1450 Transcribed By: NALINI on 09/05/20 1446 COPY TO: CARLYLE FONTENOT MD CT ABDOMEN/PELVIS WO 2020-07-30 06:16:00 [place] [address] Patient Name: LANDON GREWAL MR #: [id number] : 1945 Age/Sex: 75/M Req #: [id number] Adm Physician: Ordered by: AMANDO WRIGHT MD Report #: [id number] Location: ER Room/Bed: Procedure: [id number] CT/CT ABDOMEN/PELVIS WO Exam Date: 07/30/20 Exam [...] Color (test code = 5778-6) YELLOW YELLOW [facility] [id number] 05:38:00* Test Item Value Reference Range Interpretation Comments Urine Clarity (test code = 81263-5) CLEAR CLEAR [facility] Urine by Test strip 2020-07-30 05:38:00* Test Item Value Reference Range Interpretation Comments Urine Specific [place] (test code = 5811-5) >=1.030 1.010-1.02 5 [facility] pH measurement by automated test [id number] 05:38:00* Test Item Value Reference Range Interpretation Comments Urine pH (test code = 38877-9) 5.5 5-7 [facility] leukocyte esterase detection by adzfmcjd9790-61-75 05:38:00* Test Item Value Reference Range Interpretation Comments Urine Leukocyte Esterase (test code = 5799-2) NEGATIVE NEGATIVE [facility] nitrite [id number] 05:38:00* Test Item Value Reference Range Interpretation Comments Urine Nitrite (test code = 11960-1) NEGATIVE NEGATIVE [facility] protein measurement by test strip (mass/volume)2020-07-30 05:38:00* Test Item Value Reference Range Interpretation Comments Urine Protein (test code = 5804-0) 2+ NEGATIVE [facility] glucose [id number] 05:38:00* Test Item Value Reference Range Interpretation Comments Urine Glucose (UA) (test code = 2349-9) NEGATIVE NEGATIVE [facility]ress[facility]rine ketones detection by automated test [id number] 05:38:00* Test Item Value Reference Range Interpretation Comments Urine Ketones (test code = 36677-3) 1+ NEGATIVE [facility]ress[facility] urobilinogen measurement by test strip (mass/volume)2020-07-30 05:38:00* Test Item Value Reference Range Interpretation Comments Urine Urobilinogen (test code = 30448-2) 0.2 0.2-1 [facility] total bilirubin measurement (mass/volume)2020-07-30 05:38:00* Test Item Value Reference Range Interpretation Comments Urine Bilirubin (test code = 1978-6) SMALL NEGATIVE [facility] erythrocytes [id number] 05:38:00* Test Item Value Reference Range Interpretation Comments Urine Blood (test code = 18257-4) LARGE NEGATIVE [facility]ressAutomated urine sediment leukocyte count by microscopy (number/high power field)2020-07-30 05:38:00* Test Item Value Reference Range Interpretation Comments Urine WBC (test code = 5821-4) 0-5 0-5 [facility]ressErythrocytes detection in urine sediment by light [id number] 05:38:00* Test Item Value Reference Range Interpretation Comments Urine RBC (test code = 27561-9) >50 0-5 [facility]ressBacteria detection in urine sediment by light [id number] 05:38:00* Test Item Value Reference Range Interpretation Comments Urine Bacteria (test code = 50828-5) MODERATE NONE [facility]ressEpithelial cells detection in urine sediment by light uczvzwmqev2744-17-48 05:38:00* Test Item Value Reference Range Interpretation Comments Urine Epithelial Cells (test code = 30793-0) FEW NONE [facility]ress[facility] leukocytes automated count (number/volume)2020-07-30 05:37:00* Test Item Value Reference Range Interpretation Comments White Blood Count (test code = 6690-2) 8.25 4.8-10.8 [facility]ress[facility] erythrocytes automated count (number/volume)2020-07-30 05:37:00* Test Item Value Reference Range Interpretation Comments Red Blood Count (test code = 789-8) 4.76 4.3-5.7 [facility]ress[facility] hemoglobin measurement (moles/volume)2020-07-30 05:37:00* Test Item Value Reference Range Interpretation Comments Hemoglobin (test code = 02776-0) 14.1 14.0-18.0 [facility]ress[facility]ated blood hematocrit (volume fraction)2020-07-30 05:37:00* Test Item Value Reference Range Interpretation Comments Hematocrit (test code = 4544-3) 42.8 38.2-49.6 [facility]ress[facility]ated erythrocyte mean corpuscular [id number] 05:37:00* Test Item Value Reference Range Interpretation Comments Mean Corpuscular Volume (test code = 787-2) 89.9 81-99 [facility]ressAutomated erythrocyte mean corpuscular hemoglobin (mass per erythrocyte)2020-07-30 05:37:00* Test Item Value Reference Range Interpretation Comments Mean Corpuscular Hemoglobin (test code = 785-6) 29.6 28-32 [facility] CypressAutomated erythrocyte mean corpuscular hemoglobin concentration measurement (mass/volume)2020-07-30 05:37:00* Test Item Value Reference Range Interpretation Comments Mean Corpuscular Hemoglobin Concent (test code = 786-4) 32.9 31-35 [facility] CypressRDW SnmHn-Zzc1455-90-08 05:37:00* Test Item Value Reference Range Interpretation Comments Red Cell Distribution Width (test code = 96626-5) 12.9 11.7 -14.4 [facility] CypressAutomated blood platelet count (count/volume)2020-07-30 05:37:00* Test Item Value Reference Range Interpretation Comments Platelet Count (test code = 777-3) 253 140-360 [facility] CypressAutomated blood segmented neutrophil count as percentage of total oyitvpcflk3908-81-91 05:37:00* Test Item Value Reference Range Interpretation Comments Neutrophils (%) (Auto) (test code = 21651-1) 59.6 38.7-80.0 [facility] CypressAutomated blood lymphocyte count as percentage ot total bicdupqmbx4914-66-63 05:37:00* Test Item Value Reference Range Interpretation Comments Lymphocytes (%) (Auto) (test code = 736-9) 31.8 18.0-39.1 [facility] CypressAutomated blood monocyte count as percentage of total mtwchtpjir1977-54-91 05:37:00* Test Item Value Reference Range Interpretation Comments Monocytes (%) (Auto) (test code = 5905-5) 6.5 4.4-11.3 [facility] CypressAutomated blood eosinophil count as percentage of total tpgibjhwwx8520-84-46 05:37:00* Test Item Value Reference Range Interpretation Comments Eosinophils (%) (Auto) (test code = 713-8) 1.2 0.0-6.0 [facility] CypressAutomated blood basophil count as percentage of total bfxyurpxcq5531-34-83 05:37:00* Test Item Value Reference Range Interpretation Comments Basophils (%) (Auto) (test code = 706-2) 0.5 0.0-1.0 [facility] CypressFluoroscopic procedure less than one hour hvmbndch1418-34-05 05:37:00* Test Item Value Reference Range Interpretation Comments IM GRANULOCYTES % (test code = IM GRANULOCYTES %) 0.4 0.0- 1.0 [facility] CypressAutomated blood neutrophil count 2020-07-30 05:37:00* Test Item Value Reference Range Interpretation Comments Neutrophils # (Auto) (test code = 751-8) 4.9 2.1-6.9 [facility]ressBlood lymphocytes count (number/volume) 2020-07-30 05:37:00* Test Item Value Reference Range Interpretation Comments Lymphocytes # (Auto) (test code = 23847-8) 2.6 1.0-3.2 [facility] monocytes automated count (number/volume)2020-07-30 05:37:00* Test Item Value Reference Range Interpretation Comments Monocytes # (Auto) (test code = 742-7) 0.5 0.2-0.8 [facility] CypressAutomated blood eosinophil count 2020-07-30 05:37:00* Test Item Value Reference Range Interpretation Comments Eosinophils # (Auto) (test code = 711-2) 0.1 0.0-0.4 [facility] CypressAutomated blood basophil count (count/volume)2020-07-30 05:37:00* Test Item Value Reference Range Interpretation Comments Basophils # (Auto) (test code = 704-7) 0.0 0.0-0.1 [facility] CypressFluoroscopic procedure less than one hour gpukfbtm9195-78-17 05:37:00* Test Item Value Reference Range Interpretation Comments Absolute Immature Granulocyte (auto (maria t t code = Absolute Immature Granulocyte (auto) 0.03 0-0.1 [facility] sodium [facility] (moles/volume)2020-07-30 05:37:00* Test Item Value Reference Range Interpretation Comments Sodium Level (test code = 2951-2) 141 136-145 [facility] potassium measurement (moles/volume)2020-07-30 05:37:00* Test Item Value Reference Range Interpretation Comments Potassium Level (test code = 2823-3) 3.6 3.5-5.1 [facility] chloride measurement (moles/volume)2020-07-30 05:37:00* Test Item Value Reference Range Interpretation Comments Chloride Level (test code = 2075-0) 106 98-107 [facility] carbon dioxide, total measurement (moles/volume)2020-07-30 05:37:00* Test Item Value Reference Range Interpretation Comments Carbon Dioxide Level (test code = 2028-9) 21 22-29 [facility] anion [id number] 05:37:00* Test Item Value Reference Range Interpretation Comments Anion Gap (test code = 59895-1) 17.6 8-16 [facility] urea nitrogen measurement (mass/volume)2020-07-30 05:37:00* Test Item Value Reference Range Interpretation Comments Blood Urea Nitrogen (test code = 3094-0) 17 7-26 [facility] creatinine measurement (mass/volume)2020-07-30 05:37:00* Test Item Value Reference Range Interpretation Comments Creatinine (test code = 2160-0) 0.90 0.72-1.25 [facility] urea nitrogen/creatinine mass [id number] 05:37:00* Test Item Value Reference Range Interpretation Comments BUN/Creatinine Ratio (test code = 3097-3) 19 6-25 [facility]ress[facility]ated glomerular filtration rate (GFR) [id number] 05:37:00* Test Item Value Reference Range Interpretation Comments Estimat Glomerular Filtration Rate (test code = 831906315) > 60 >60 Ranges were taken from the National Kidney Disease Education Program and the [facility] literature.Reference ranges:60 or greater: [id number] ( for 3 consecutive months): Chronic kidney disease 15 or less: Kidney failureH[facility] CypressGlucose [id number] 05:37:00* Test Item Value Reference Range Interpretation Comments Glucose Level (test code = JPU0056) 143 74-118 [facility] calcium measurement (mass/volume)2020-07-30 05:37:00* Test Item Value Reference Range Interpretation Comments Calcium Level (test code = 58214-6) 9.1 8.4-10.2 [facility] total bilirubin measurement (mass/volume)2020-07-30 05:37:00* Test Item Value Reference Range Interpretation Comments Total Bilirubin (test code = 1975-2) 0.3 0.2-1.2 [facility] CypressFluoroscopic procedure less than one hour [id number] 05:37:00* Test Item Value Reference Range Interpretation Comments Aspartate Amino Transf (AST/SGOT) (test code = Aspartate Amino Transf (AST/SGOT)) 21 5-34 [facility] alanine aminotransferase measurement (enzymatic activity/volume)2020-07-30 05:37:00* Test Item Value Reference Range Interpretation Comments Alanine Aminotransferase (ALT/SGPT) (test code = 1742-6) 30 0-55 [facility] protein measurement (mass/volume)2020-07-30 05:37:00* Test Item Value Reference Range Interpretation Comments Total Protein (test code = 2885-2) 6.9 6.5-8.1 [facility] albumin measurement (mass/volume)2020-07-30 05:37:00* Test Item Value Reference Range Interpretation Comments Albumin (test code = 1751-7) 3.7 3.5-5.0 [facility] CypressPlasma globulin measurement (mass/volume) 2020-07-30 05:37:00* Test Item Value Reference Range Interpretation Comments Globulin (test code = 34150-9) 3.2 2.3-3.5 [facility] albumin/globulin mass [id number] 05:37:00* Test Item Value Reference Range Interpretation Comments Albumin/Globulin Ratio (test code = 1759-0) 1.2 0.8-2.0 [facility] alkaline phosphatase measurement (enzymatic activity/volume)2020-07-30 05:37:00* Test Item Value Reference Range Interpretation Comments Alkaline Phosphatase (test code = 6768-6) 61 40-150 [facility] amylase measurement (enzymatic activity/volume)2020-07-30 05:37:00* Test Item Value Reference Range Interpretation Comments Amylase Level (test code = 1798-8) 93 25-125 [facility] lipase measurement (enzymatic activity/volume)2020-07-30 05:37:00* Test Item Value Reference Range Interpretation Comments Lipase (test code = 3040-3) 38 8-78 [facility]
--- OUTSIDE RECORDS SUMMARY | 2020-09-05 15:33 | XMS REPORT | Continuity of Care Document ---
Author Author LANDON Pedroza [employer] Address Unknown Phone Unavailable Care Team Providers Care Photogrammetric Tech Name Role Phone [employer] Information [employer] Unavailable Un available Problems Problem [...] TABLETA POR VIA ORAL AL ACOSTARSE, Pharmacy: [facility]/pharmacy #6000 Active 10/23/2019 [facility] omeprazole 40 mg oral delayed release capsule See Instructions, # 90 unknown unit, TOME PHIL CAP[place]A [place], Pharmacy: [facility]/pharmacy #6000 Active 07/26/2019 [facility] ONE TOUCH ULTRA BLUE TEST STRP See Instructions, # 100 strip, Refill(s) 12, USE TODOS [place], Pharmacy: [facility]/pharmacy #6000 Active 07/08/2019 [facility] rosuvastatin 10 mg oral tablet See Instructions, TOME PHIL TABLETA [place]STAR[place], # 90 tab, 1 Refill(s), Pharmacy: [facility]/pharmacy #6000 Active 04/26/2019 [facility] Metformin hydrochloride 500 MG Oral Tablet 500 mg = 1 tab, PO, BID-Meals, # 180 tab, 1 Refill(s), Pharmacy: [facility]/pharmacy #6000 Active 04/26/2019 [facility] Hydrochlorothiazide 12.5 MG / Losartan P otassium 50 MG Oral Tablet See Instructions, TOME PHIL TABLETA [place], # 90 tab, 1 Refill(s), Pharmacy: [facility]/pharmacy #6000 Active 04/26/2019 [facility] Atenolol 100 MG Oral Tablet Se e Instructions, TOME PHIL TABLETA [place], # 90 tab, 1 Refill(s), Pharmacy: [facility]/pharmacy #6000 Active 04/26/2019 [facility] Diclofenac Sodium 0.01 MG/MG Topical Gel 4 gm = 1 appl, TOP, BID, PRN Apply to affected area, # 100 gm, 1 Refill(s), Pharmacy: [facility]/pharmacy #6000 Active 04/26/2019 [facility] meloxicam 15 mg oral tablet 15 mg = 1 tab, PO, Daily, # 30 tab, 0 Refill(s), Pharmacy: [facility]/pharmacy #6000 Active 04/26/2019 [facility] Metformin hydrochloride 500 MG Oral Tablet 500 mg = 1 tab, PO, BID-Meals, # 180 tab, 1 Refill(s), Pharmacy: [facility]/pharmacy #6000 Active 02/08/2019 [facility] Hydrochlorothiazide 12.5 MG / Losartan P otassium 50 MG Oral Tablet See Instructions, # 90 tab, Refill(s) 1, TOME PHIL TABLETA [place], Pharmacy: [facility]/pharmacy #6000 Active 01/11/2019 [facility] omeprazole 40 mg oral delayed release capsule See Instructions, # 90 unknown unit, TOME PHIL CAPS[place]A [place], Pharmacy: [facility]/pharmacy #6000 Active 01/11/2019 [facility] Metformin hydrochloride 500 MG Oral Tablet See Instructions, # 180 tab, Refill(s) 1, TOME PHIL TABLETA POR VIA ORAL DOS VECES AL [place], Pharmacy: [facility]/pharmacy #6000 Active 01/11/2019 [facility] Atenolol 100 MG Oral Tablet Se e Instructions, # 90 tab, Refill(s) 1, TOME PHIL TABLETA [place], Pharmacy: [facility]/pharmacy #6000 Active 01/11/2019 [facility] levocetirizine 5 mg oral tablet See Instructions, # 30 tab, TOME PHIL TABLETA [place], Pharmacy: [facility]/pharmacy #6000 Active 12/30/2018 [facility] levocetirizine dihydrochloride 5 MG Oral Tablet [Xyzal ] 5 mg = 1 tab, PO, QPM, # 30 tab, 0 Refill(s), Pharmacy: [facility]/pharmacy #6000 No Longer Active 11/30/2018 [facility] Codeine Phosphate 2 MG/ML / Guaifenesin 20 MG/ML Oral Solution [Cheratussin] 10 ml, PO, Q8H, PRN for cough, X 14 day, # 120 mL, 0 Refill(s) No Longer Active 11/30/2018 [facility] rosuvastatin 10 mg oral tablet See Instructions, # 90 tab, Refill(s) 1, TOME PHIL TABLETA [place] [facility], Pharmacy: [facility]/pharmacy #6000 Active 11/05/2018 [facility] omeprazole 40 mg oral delayed release capsule See Instructions, # 90 unknown unit, TOME PHIL [facility]S[place] [facility], Pharmacy: [facility]/pharmacy #6000 No Longer Active 11/05/2018 [facility] Hydrochlorothiazide 12.5 MG / Losartan P otassium 50 MG Oral Tablet 1 tab, PO, Daily, # 90 tab, 1 Refill(s), Pharmacy: [facility]/pharmacy #6000 No Longer Active 08/22/2018 [facility] tadalafil 5 MG Oral Tablet [Cialis] 5 mg = 1 tab, PO, Daily, Benign Prostatic Hyperplasia, # 30 tab, 0 Refill(s), Pharmacy: [facility]/pharmacy #6000 Active 08/08/2018 [facility] rosuvastatin 10 mg oral tablet 10 mg = 1 tab, PO, Bedtime, # 90 tab, 0 Refill(s), Pharmacy: [facility]/pharmacy #6000 No Longer Active 08/08/2018 [facility] omeprazole 40 mg oral delayed release capsule 40 mg = 1 cap, PO, Daily, # 90 cap, 0 Refill(s), Pharmacy: [facility]/pharmacy #6000 No Longer Active 08/08/2018 [facility] Metformin hydrochloride 500 MG Oral Tablet 500 mg = 1 tab, PO, BID-Meals, # 180 tab, 1 Refill(s), Pharmacy: [facility]/pharmacy #6000 No Longer Active 08/08/2018 [facility] Hydrochlorothiazide 12.5 MG / valsartan 80 MG Oral Tablet 1 tab, PO, Daily, # 90 tab, 1 Refill(s), Pharmacy: [facility]/pharmacy #6000 No Longer Active 08/08/2018 [facility] Atenolol 100 MG Oral Tablet 10 0 mg = 1 tab, PO, Daily, # 90 tab, 1 Refill(s), Pharmacy: [facility]/pharmacy #6000 No Longer Active 08/08/2018 [facility] rosuvastatin 10 mg oral tablet 10 mg = 1 tab, PO, Bedtime, # 90 tab, 0 Refill(s) Inactive 08/08/2018 [facility] Atenolol 100 MG Oral Tablet 10 0 mg = 1 tab, PO, Daily, # 90 tab, 0 Refill(s) Inactive 08/08/2018 [facility] Hydrochlorothiazide 12.5 MG / valsartan 80 MG Oral Tablet 1 tab, PO, Daily, # 90 tab, 1 Refill(s) Inactive 08/08/2018 [facility] omeprazole 40 mg oral delayed release capsule 40 mg = 1 cap, PO, Daily, # 90 cap, 0 Refill(s) Inactive 08/08/2018 [facility] tadalafil 5 MG Oral Tablet [Cialis] 5 mg = 1 tab, PO, Daily, Benign Prostatic Hyperplasia, # 90 tab, 3 Refill(s) Inactive 08/08/2018 [facility] Metformin hydrochloride 500 MG Oral Tablet 500 mg = 1 tab, PO, BID-Meals, # 180 tab, 1 Refill(s) Inactive 08/08/2018 [facility] Allergies, Adverse Reactions, Alerts Substance Category Reaction Severity Reaction type Status Date Reported Comments Source iodine Assertion Drug allergy Active [facility] Immunizations Immunization Date Given Site Status Last Updated Comments Source pneumococcal 13-valent vaccine<sup>1</sup> 08/08/2018 Right Deltoid completed [facility] Result Comment: Pat dallasnt waited in room ten mins no allergic reaction. Medical [facility] Results No Data Provided for This Section Pathology Reports No Data Provided for This Section Diagnostic Reports No Data Provided for This Section Consultation Notes No Data Provided for This Section Discharge Summaries No Data Provided for This Section History and Physicals No Data Provided for This Section Vital Signs Vital Sign Value Date Comments Source Height 170.18 cm 04/26/2019 [facility] Weight 71.364 04/26/2019 [facility] BMI Calculated 24.64 04/26/2019 Medical [facility] Heart Rate 63 04/26/2019 [facility] Systolic (mm Hg) 136 04/26/2019 [facility] Diastolic (mm Hg) 83 04/26/2019 Medical [facility] Respitory Rate 16 04/26/2019 [facility] Systolic (mm Hg) 137 12/24/2018 [facility] Diastolic (mm Hg) 69 12/24/2018 Medical [facility] Height 165.1 cm 12/24/2018 [facility] [...] ADM Date DC Date Status Source Outpatient [id number] DEVI BILLY 08/08/2018 [facility] Primary Care [facility] Outpatient [id number] Devi Billy 08/08/2018 08/09/2018 [facility] Outpatient [id number] DEVI BILLY 08/22/2018 [facility] Primary [facility] Outpatient [id number] Devi Mariajose 08/22/2018 08/23/2018 [facility] Outpatient [id number] DEVI BILLY 11/30/2018 Active [facility] Outpatient [id number] Devi Mariajose 11/30/2018 12/01/2018 [facility] Outpatient [id number] DEVI MARIAJOSE 12/24/2018 Active [facility] Outpatient [id number] Devi Mariajose 12/24/2018 12/25/2018 Medical Group [facility] Phone Message [phone] 02/08/2019 02/10/2019 [facility] Outpatient [id number] Devi Billy 04/26/2019 Active [facility] Outpatient [id number] Devi Mariajose 04/26/2019 04/27/2019 Medical Group [facility] Internal Medicine [facility] Phone Message [id number] 07/08/2019 07/10/2019 [facility] Group [facility] Internal Medicine [facility] Phone Message [id number] 07/25/2019 07/27/2019 Medical Group [facility] Internal Medicine [facility] Phone Message [id number] 10/21/2019 10/23/2019 [facility] Group [facility] Internal Medicine [facility] Phone Message [id number] 10/21/2019 10/23/2019 [facility] Group [facility] Internal Medicine [facility] Phone Message [id number] 10/21/2019 10/23/2019 [facility] Group [facility] Internal Medicine [facility] Phone Message [phone] 10/22/2019 10/24/2019 [facility] Procedures Procedure Code Date Perfomer [facility] Source Diabetic Retinopathy Study 7 field stere oscopic fundus photography<sup>1, 2</sup> [id number] 05/15/2019 [facility] Exercise stress test<sup>1</sup> [id number] 10/18/2018 [facility] Exercise stress test<sup>3</sup> [id number] 10/18/2018 [facility] Diabetic Retinopathy Study 7 field stere oscopic fundus photography<sup>2</sup> [id number] 03/23/2018 per patient [facility] Colonoscopy [id number] 10/23/2010 [facility] Assessment and Plan No [...]
[2020-09-05] MEDS: CEFTRIAXONE SOD 1 GM/NS 50 ML 50 ML IV SCH (15:40)
[2020-09-05] MEDS: SODIUM CHLORIDE 0.9% 1000ML 1,000 ML IV SCH (15:40)
--- NOTE | 2020-09-05 16:44 | NUR ---
ASSUMED CARE. PATIENT ARRIVED TO UNIT AT APPROXIMATELY 1630. AAOX3. ACYANOTIC. RESTING IN BED WATCHING TELEVISION. NO DISTRESS NOTED. CALL LIGHT IN REACH. SIDE RIALS UP X2. BED LOW AND LOCKED.
[2020-09-05 16:45] VITALS: BP 134/75
[2020-09-05 17:00] VITALS: BP 134/75
[2020-09-05] MEDS ORDERED: CRESTOR10 MG PO (19:34)
[2020-09-05] MEDS ORDERED: ATENOLOL50 MG PO (19:34)
[2020-09-05] MEDS ORDERED: LOSARTAN POTAS100 MG PO (19:34)
[2020-09-05] MEDS ORDERED: ACETAMINOPHEN 325 MG TAB PO PRN (19:45)
[2020-09-05] MEDS ORDERED: DEXTROSE 50% SYRINGE 50 ML IV PRN (19:45)
[2020-09-05 20:00] VITALS: BP 120/65
[2020-09-05] MEDS: INSULIN REGULAR, HUMAN 100 UNIT/1 ML 3ML VIAL SQ SCH (21:00)
[2020-09-05] MEDS ORDERED: METFORMIN HCL500 MG PO (21:04)
[2020-09-05] MEDS ORDERED: ASPIRIN81 MG PO (21:04)
--- NOTE | 2020-09-05 21:09 | History and Physical ---
PRIMARY CARE PHYSICIAN: Dr. Soham Alvarado. CHIEF COMPLAINT: Left flank pain. HISTORY OF PRESENT ILLNESS: This is a 75-year-old male, with past medical history of hypertension, diabetes, prostate cancer, high cholesterol and kidney stones, presented to the ER with complaints of left flank pain that started early this morning. He reports the pain is constant in the left flank area with no nausea, vomiting, fever, chills, dysuria, or hematuria. He has no pelvic pain, abdominal pain, or chest pain. No shortness of breath or ill contacts, and he reports was supposed to see a urologist on 09/14/2020, but the pain was severe, so he had to come in sooner for evaluation. He reports had kidney stones one month ago, which he feels is similar to what he is having right now. PAST MEDICAL HISTORY: 1. Hypertension. 2. Diabetes type 2. 3. High cholesterol. 4. Prostate cancer. SURGICAL HISTORY: Denied any. FAMILY MEDICAL HISTORY: He reports mother of colon cancer and father of heart attack. SOCIAL HISTORY: He denies any tobacco, alcohol, or illicit drug use. He is and lives with family. ALLERGIES: HE IS ALLERGIC TO IODINE. REVIEW OF SYSTEMS: 12-systems reviewed and negative except as reported in the HPI. PHYSICAL EXAMINATION: VITAL SIGNS: Temperature 98.2, pulse is 75, respirations 18, blood pressure 134/75, and pulse ox is 100% on room air. GENERAL: No acute distress. HEENT: Normocephalic and atraumatic. NECK: Supple. LUNGS: Clear to auscultation. CARDIOVASCULAR: Regular rate and rhythm. GI: Soft and nontender. NEUROLOGIC: Alert, awake, and oriented x3. MUSCULOSKELETAL: Moves all EXTREMITIES: No edema. SKIN: Dry. : Left flank pain. PSYCH: Calm. LABORATORY DATA: WBC 9.26, hemoglobin 13.1, hematocrit 39.9, and platelets 232. Chemistry; sodium 138, potassium 4.4, CO2 of 25, BUN 16, creatinine 1.06, estimated GFR is greater than 60. Blood glucose is 112, AST 26, ALT 28, albumin 3.7, PT 12.8, INR 0.92, APTT 28.1. UA is negative. Coronavirus PCR is pending. Urine culture is pending. CT abdomen and pelvis showed a 5 mm obstructive stone in the distal left ureter with mild left hydroureteronephrosis. Unable to determine as this represent a new stone versus previously identified left ureteral stone with slight interval advancement. Consider urology consultation, nonspecific perinephric fat stranding on the left is suggestive of forniceal rupture, mild prostatomegaly. IMPRESSION AND PLAN: 1. Left flank pain due to 5 mm obstructive stone with hydroureteronephrosis. UA is negative, urine culture is pending. We will continue with IV fluids, pain management, and Rocephin empirically. Urology has been consulted for further evaluation. 2. Hypertension. We will resume losartan and atenolol. 3. Diabetes. Sliding scale insulin. 4. High cholesterol. Continue Crestor. 5. History of prostate CA. CT shows prostatomegaly. Reports lucency and PSA was 0.9 per patient. 6. GI and DVT prophylaxis. We will hold chemical anticoagulation due to urological workup. Dictated by LEON Arias Destini Mitchell MD MY/MODL /[id number]
--- NOTE | 2020-09-05 21:27 | NUR ---
SPOKE TO JENNIFER GALE OF DR. XIE AT THIS TIME REGARDING UPDATED HOME MED LIST. NEW ORDER RECEIVED TO CONTINUE ASPIRIN, HOLD METFORMIN AND CHANGE DOSAGE OF SIMVASTATIN TO 40MG THE THERAPEUTIC SUBSTITUTE FOR ROSUVASTATIN 10MG.
[2020-09-05 22:03] VITALS: BP 120/65
[2020-09-05] MEDS: SIMVASTATIN 40 MG TAB PO SCH (22:10)
[2020-09-05] MEDS: ASPIRIN 81 MG CHEW TAB PO SCH (22:10)
[2020-09-05] MEDS: MORPHINE SULFATE 2 MG/ML SYR 1ML IV PRN (23:22)
[2020-09-06] VITALS (8 sets, daily range): BP systolic 121–143; BP diastolic 64–76
[2020-09-06 05:28] LABS: BASOPHILS % 0.4 % (0.0-1.0); EOSINOPHILS # (AUTO) 0.1 (0.0-0.4); HEMATOCRIT 36.6 % (38.2-49.6); HEMOGLOBIN 12.1 g/dL (14.0-18.0); LYMPHOCYTES # (AUTO) 0.9 (1.0-3.2); LYMPHOCYTES % 11.9 % (18.0-39.1); MEAN CORPUSCULAR HEMOGLOBIN 29.4 pg (28-32); MEAN CORPUSCULAR HGB CONC 33.1 g/dL (31-35); MEAN CORPUSCULAR VOLUME 89.1 fL (81-99); MONOCYTES # (AUTO) 0.7 (0.2-0.8); MONOCYTES % 8.7 % (4.4-11.3); NEUTROPHILS % 77.6 % (38.7-80.0); PLATELET COUNT 216 x10e3/uL (140-360); RED BLOOD COUNT 4.11 x10e6/uL (4.3-5.7)
[2020-09-06 05:46] LABS: ALBUMIN/GLOBULIN RATIO 1.1 (0.8-2.0); ANION GAP 10.5 mmol/L (8-16); CREATININE, SERUM 1.22 mg/dL (0.72-1.25); POTASSIUM 3.5 mmol/L (3.5-5.1)
[2020-09-06] MEDS: SODIUM CHLORIDE 0.9% 1000ML 1,000 ML IV SCH ×2 (05:52→19:30)
--- NOTE | 2020-09-06 07:00 | NUR ---
ASSUMED CARE. PATIENT RESTING IN BED. AWAKE AND ALERT. NO DISTRESS NOTED. CALL LIGHT IN REACH. SIDE RAILS UP X2. BED LOW AND LOCKED.
[2020-09-06] MEDS: INSULIN REGULAR, HUMAN 100 UNIT/1 ML 3ML VIAL SQ SCH ×4 (07:30→20:42)
[2020-09-06] MEDS: LOSARTAN POTASSIUM 100 MG TAB PO SCH (08:33)
[2020-09-06] MEDS: ATENOLOL 50 MG TAB PO SCH (08:33)
[2020-09-06] MEDS ORDERED: SIMVASTATIN 40 MG TAB PO SCH (09:00)
--- NOTE | 2020-09-06 13:36 | Consultation ---
DATE OF CONSULTATION: 09/06/2020 Urology Consultation REASON FOR CONSULTATION: Persistent obstructive uropathy. HISTORY OF PRESENT ILLNESS: Edilson Daniels is a 75-year-old man who denies previous problems with urolithiasis. The patient was seen in the emergency room on July 30 with a 4 mm distal left ureteral stone with mild hydronephrosis. The patient was discharged for management by his primary care physician. He referred for urological evaluation as an outpatient. He has yet to follow up for that visit, apparently it has been scheduled. The patient reported persistent severe left-sided pains, reported to the emergency room, was re-evaluated and found to have persistent left ureterolithiasis that has not moved millimeter with worsening hydronephrosis. He was subsequently readmitted for further management. The patient denies hematuria, dysuria, urine tract infections and he also denies having any fevers at home. His past urological history includes prostate cancer, which is status post radiotherapy with placement of fiducials in [place], [place] eight years ago. PAST MEDICAL/SURGICAL HISTORY: 1. Status post bilateral cataract surgery. 2. Hypertension. 3. Diabetes mellitus. 4. Hypercholesterolemia. 5. Prostate cancer, status post radiotherapy. FAMILY HISTORY: Significant for colon cancer and heart disease, was noncontributory to the active urological problems. SOCIAL HISTORY: The patient denies smoking, ethanol drug use. He is . Has supportive family at the bedside. He used to work for in sales. ALLERGIES: IODINE. REVIEW OF SYSTEMS: Discussed as above in history of present illness, past medical history, otherwise negative for all systems. PHYSICAL EXAMINATION: GENERAL: Very pleasant elderly male, lying in bed, in no apparent distress, he is currently afebrile. VITAL SIGNS: Currently stable. ABDOMEN: Soft, nondistended, nontender except for mild left-sided costovertebral angle tenderness, kidneys not palpable without hepatosplenomegaly. There is a reducible umbilical hernia. GENITOURINARY: Testes descended bilaterally. Testes are nontender. Some induration of the patient's vas and epididymis, but they are nontender. The patient is uncircumcised male, phallus with normal meatus without any lesion. Digital rectal examination is deferred at the present time. For the remaining physical examination systems, please refer to the admission history and physical in the chart. LABORATORY STUDIES: CT scan of the abdomen and pelvis on July 30 revealed a 4 mm stone in the distal left ureter with mild hydroureteronephrosis and perinephric fat stranding. The small right kidney stone was present there, but it was subtle on the CT and it was not mentioned in the report. On yesterday's report, they described the stone is a 5 mm stone, there was definitely worsened hydronephrosis on the left side compared to the prior study and more easily visible 2 mm stone in the midpole of the right kidney. The prostate is enlarged. Unfortunately, the radiologist only remarked above measurements in two volume and in two dimensions for this three-dimensional object whose volume measurement would be helpful. Also, the radiologist noted multiple metallic densities in the pelvis. It is obvious that these are fiducials placed in the prostate for radiotherapy. The umbilical hernia noted on physical examination was also noted on CT. White blood cell count 7700, hemoglobin 12.1, platelets 216,000. The patient's calcium is low at 8.0, creatinine is normal at 1.22. Urinalysis significant for microhematuria and concentrated urine culture test is pending. Urine culture significant for gram-negative bacilli and cultures are pending. ASSESSMENT: 1. Left ureterolithiasis. Having failed outpatient management for over a month. 2. Complicated urinary tract infection with obstructive uropathy. 3. Right nephrolithiasis that is small. 4. Left hydroureteronephrosis due to stone. 5. Left renal colic. 6. Prostate cancer, status post radiotherapy eight years ago. 7. Benign prostatic hyperplasia. 8. Umbilical hernia. 9. Complicated urinary tract infection. 10. Microhematuria. 11. Hypocalcemia. 12. Anemia. PLANS: 1. Hematological and electrolyte abnormalities per the primary team. 2. Stent place cystoscopy with retrograde pyelograms and stent placement tomorrow. Most likely, we will not manipulate this stone due to the fact that there is a urinary tract infection, we will perform a stone management procedure after the patient's urinary tract infection has been adequately treated. 3. Ongoing urological followup is a must both for the prostate cancer as well as the urolithiasis. Thank you much for involving us in care of your patient. We will be happy to follow along with you as well as outpatient. Darrius MD RAFAELA Lovell/BRIAN /[id number] cc: Soham Alvarado
[2020-09-06] MEDS: CEFTRIAXONE SOD 1 GM/NS 50 ML 50 ML IV SCH (15:48)
[2020-09-06] MEDS: SIMVASTATIN 40 MG TAB PO SCH (20:42)
[2020-09-06] MEDS: ASPIRIN 81 MG CHEW TAB PO SCH (20:42)
--- NOTE | 2020-09-06 21:34 | Progress Note ---
DATE: 09/06/2020 DROP CLIPPER: Darrius Lovell MD, Urology. SUBJECTIVE: The patient is sitting up in a chair with spouse at bedside. He reports left flank pain, especially worse at night. He denies any dysuria, hematuria, or abdominal pain. He denies any nausea, vomiting, chest pain or shortness of breath. PHYSICAL EXAMINATION: VITAL SIGNS: Temperature 98.9, pulse is 72, respirations 17, blood pressure 121/64, pulse ox is 99% on room air. GENERAL: No acute distress. HEENT: Normocephalic, atraumatic. NECK: Supple. LUNGS: Clear to auscultation. CARDIOVASCULAR: Regular rate and rhythm. GI: Soft and nontender. NEUROLOGIC: Alert, awake, and oriented x3. MUSCULOSKELETAL: Moves all extremities. No edema. SKIN: Dry. : Left flank pain radiating to the left pelvic area. PSYCH: Calm. LABORATORY DATA: WBC 7.7, hemoglobin 12.1, hematocrit 36.6, platelets 216. Sodium 138, potassium 3.5, BUN 16, creatinine 1.22, estimated GFR is 58, PT 12.8, INR 0.92. IMPRESSION AND PLAN: 1. Left flank pain due to left nephrolithiasis and hydroureteronephrosis. Urine culture shows gram-negative rods, we will continue with Rocephin. Urology has been consulted and planned cystoscopy with stent placement tomorrow. 2. Gram-negative rods urinary tract infection. We will continue with Rocephin and await on the final urine cultures. 3. Hypertension. Continue on losartan and atenolol. 4. Diabetes. Sliding scale insulin. 5. High cholesterol. Continue Crestor. 6. History of prostate CA. Status post treatment. 7. GI and DVT prophylaxis. Hold chemical anticoagulation due to urological workup tomorrow. PLAN: To continue current treatment, IV fluids and IV antibiotics. N.p.o. after midnight for cystoscopy with stent placement per Urology tomorrow. Dictated by LEON Arias Destini Mitchell MD MY/MODL /[id number]
[2020-09-07] VITALS (9 sets, daily range): BP systolic 116–137; BP diastolic 60–72
[2020-09-07] MEDS: MORPHINE SULFATE 2 MG/ML SYR 1ML IV PRN (03:45)
[2020-09-07 05:31] LABS: BASOPHILS % 0.4 % (0.0-1.0); EOSINOPHILS # (AUTO) 0.1 (0.0-0.4); EOSINOPHILS % 0.8 % (0.0-6.0); HEMATOCRIT 35.5 % (38.2-49.6); HEMOGLOBIN 11.8 g/dL (14.0-18.0); LYMPHOCYTES # (AUTO) 0.9 (1.0-3.2); LYMPHOCYTES % 12.8 % (18.0-39.1); MEAN CORPUSCULAR HEMOGLOBIN 29.5 pg (28-32); MEAN CORPUSCULAR HGB CONC 33.2 g/dL (31-35); MEAN CORPUSCULAR VOLUME 88.8 fL (81-99); MONOCYTES # (AUTO) 0.7 (0.2-0.8); MONOCYTES % 9.3 % (4.4-11.3); NEUTROPHILS # (AUTO) 5.5 (2.1-6.9); NEUTROPHILS % 76.4 % (38.7-80.0); PLATELET COUNT 196 x10e3/uL (140-360); RED CELL DISTRIBUTION WIDTH 13.1 % (11.7-14.4)
[2020-09-07 05:55] LABS: ANION GAP 10.7 mmol/L (8-16); CREATININE, SERUM 1.19 mg/dL (0.72-1.25); POTASSIUM 3.7 mmol/L (3.5-5.1)
--- NOTE | 2020-09-07 07:06 | NUR ---
RECEIVED REPORT FROM OFF GOING NURSE. PT LYING IN BED, AWAKE, SEMI-FOWLERS POSITION, AND NO APPARENT DISTRESS.
[2020-09-07] MEDS ORDERED: IOPAMIDOL 300MG/ML 50ML INFUS..BTL IV ONE (08:04)
[2020-09-07] MEDS ORDERED: B&O 60MG R/S 60 MG SUPP PR ONE (08:04)
[2020-09-07] MEDS ORDERED: GENTAMICIN 80MG/NS 100 ML 100 ML IV ONE (08:20)
[2020-09-07] MEDS: SODIUM CHLORIDE 0.9% 1000ML 1,000 ML IV SCH ×2 (09:35→21:21)
[2020-09-07] MEDS: LOSARTAN POTASSIUM 100 MG TAB PO SCH (10:41)
[2020-09-07] MEDS: ATENOLOL 50 MG TAB PO SCH (10:41)
--- NOTE | 2020-09-07 11:42 | Operative Report ---
DATE OF PROCEDURE: 09/07/2020 SURGEON: Darrius Lovell MD PREOPERATIVE DIAGNOSES: 1. Left hydroureteronephrosis due to stone. 2. Microhematuria. 3. Complicated urinary tract infection. POSTOPERATIVE DIAGNOSES: 1. Left hydroureteronephrosis due to stone. 2. Microhematuria. 3. Complicated urinary tract infection. 4. 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 TESTS PERFORMED: 1. . 2. Cystourethroscopy with bilateral ureteral catheterization and retrograde ureteropyelography . 3. Interpretation of retrograde ureteropyelography, no radiologist present. 4. Supervision of fluoroscopy, no radiologist present. 5. Cystourethroscopy with insertion of left indwelling ureteral stent (7-Togolese x 6 cm). ANESTHESIA: General. COMPLICATIONS: None. CLINICAL SUMMARY: Edilson Daniels is a 75-year-old man who was admitted obstructive uropathy, positive urine culture, although sensitivities and identification are pending. Nevertheless, the patient has had UTI and obstruction and a stone that failed to pass. He is brought for ureteral stenting. He is aware of the risks of bleeding, infection, injury to adjacent structures, need for additional procedures. He also understands that he will have a temporary indwelling ureteral stent that requires followup and removal with dire, potential consequences of non-compliant. He understood all these risks and elected to proceed. OPERATIVE PROCEDURE IN DETAIL: Informed consent was verified. Edilson Daniels was properly identified, taken to the operating room and placed on cystoscopy table in supine position. Anesthesia was uneventfully begun. The patient was then carefully and gently repositioned in dorsal lithotomy position with all pressure points padded. The genitalia were prepared and draped in usual sterile fashion. A 22-Togolese cystourethroscope sheath with the visual obturator in place was atraumatically inserted into the patient's urethra, it was guided down the unremarkable distal urethra through some sphincteric region, there was significant resistance consistent with narrowing and stricturing at the level of the urinary sphincter. We dilated this utilizing the cystoscope sheath with a visual obturator and the calibrated and dilated to 22.5-Togolese in size. The prostate bed was significant for trilobar prostatic hypertrophy with a small intravesical median lobe and kissing lateral lobes. There was blanching from prior radiotherapy. We went to the patient's bladder where panendoscopy revealed grade 1-2 trabeculations, but no tumors, no stones, no suspicious lesions normally positioned configured ureteral orifices were identified. An open-ended ureteral catheter was used to cannulate the right ureter and retrograde ureteropyelography performed. We then utilized hydrophilic guidewire to negotiate the open-ended catheter into the left ureter, past the stone, and up into the renal pelvis. Contrast was injected minimally to only barely opacify the system. Following the obtaining of a brisk hydronephrotic drip, which was sent for culture and sensitivity. With cystoscopic and fluoroscopic guidance, a left-sided indwelling ureteral stent was then placed, it was coiled in the patient's upper pole calyx as well as the patient's bladder. The retaining suture was cut short. Interpretation of retrograde ureteropyelography contrast was instilled in retrograde fashion bilaterally. The right side was unremarkable. There were no tumors. There were no suspicious lesions. I could not identify the small stone noted on CT. The left side exhibited hydroureteronephrosis with bifid collecting system. The stent was in good position, coiled the patient's upper pole calyx as well as the patient's bladder at the end of the case. The patient's bladder was drained. The cystoscope was withdrawn. Belladonna and opium suppository was placed revealing a fixed prostate bed without any specific nodules, but I could not adequately estimate the prostatic size. The patient was then uneventfully reversed from anesthesia and taken to recovery room in stable condition. There were no complications for the procedure and he tolerated the procedure well. We will eagerly await the patient's culture and sensitivity and adjust his antibiotics accordingly. We did give the patient 80 mg of gentamicin as additional antibiotics perioperatively. Darrius Lovell MD [place]/MODL /[id number] cc: Soham Alvarado
[2020-09-07] MEDS: INSULIN REGULAR, HUMAN 100 UNIT/1 ML 3ML VIAL SQ SCH ×3 (12:00→21:24)
[2020-09-07] MEDS: CEFTRIAXONE SOD 1 GM/NS 50 ML 50 ML IV SCH (15:30)
--- NOTE | 2020-09-07 16:33 | Progress Note ---
DATE: 09/07/2020 AS400 ADMINISTRATOR: Dr. Darrius Lovell, Urology. SUBJECTIVE: The patient is status post cystoscopy this morning. He reports has dysuria and hematuria, but is improving throughout the day. He denies any abdominal pain, flank pain, chest pain, shortness of breath, nausea, or vomiting. PHYSICAL EXAMINATION: VITAL SIGNS: Temperature 97.6, pulse is 82, respirations 20, blood pressure 116/63, and pulse ox is 96% on room air. GENERAL: No acute distress. HEENT: Normocephalic and atraumatic. NECK: Supple. LUNGS: Clear to auscultation. CARDIOVASCULAR: Regular rate and rhythm. GI: Soft and nontender. NEUROLOGIC: Alert, awake, and oriented x3. MUSCULOSKELETAL: Moves all extremities. No edema. SKIN: Dry. : Dysuria and hematuria improving. PSYCH: Calm. LABORATORY DATA: WBC 7.18, hemoglobin 11.8, hematocrit 35.5, and platelet 196. Sodium 140, potassium 3.7, CO2 24, creatinine 1.19, estimated GFR is 60, and calcium 8.0. Urine culture positive for E. coli. IMPRESSION AND PLAN: 1. Left flank pain due to left nephrolithiasis and hydroureteronephrosis. Status post cystoscopy this morning with stent placement. We will continue with IV fluids and antibiotics and pain management as needed. 2. Escherichia coli urinary tract infection. We will continue Rocephin. 3. Hypertension. Continue losartan and atenolol. 4. Diabetes type 2. Sliding scale insulin. 5. High cholesterol, on Crestor. 6. History of prostate cancer, on remission. 7. Gastrointestinal and deep venous thrombosis prophylaxis. We will hold chemical anticoagulation due to hematuria and Urology workup. PLAN: To continue IV fluids and IV antibiotics. Pain management as needed. Anticipate discharge home tomorrow once cleared by Urology on antibiotics. Dictated by LEON Arias Destini Mitchell MD MY/MODL /[id number]
--- NOTE | 2020-09-07 19:00 | NUR ---
Report given to off going nurse. Pt lying in bed semi-fowlers and no apparent distress. Pt denies pain 0/10.
--- NOTE | 2020-09-07 19:00 | NUR ---
Report given to off going nurse. Pt lying in bed semi-fowlers and no apparent distress. Pt denies pain 0/10.
--- NOTE | 2020-09-07 19:17 | NUR ---
WALKING ROUNDS PERFORMED, RECEIVED PT LAYING SEMI FOWLERS IN BED, AAOX3, RR EVEN AND NON-LABORED, ON ROOM AIR. NO S/SX OF DISTRESS NOTED. LEFT PT LAYING SEMI FOWLERS IN BED, BED IN LOW LOCKED POSITION, SIDE RAILS UPX2, CALL LIGHT AND PHONE WITHIN REACH.
[2020-09-07] MEDS: SIMVASTATIN 40 MG TAB PO SCH (21:24)
[2020-09-07] MEDS: ASPIRIN 81 MG CHEW TAB PO SCH (21:24)
[2020-09-08 03:42] VITALS: BP 128/53
--- NOTE | 2020-09-08 07:00 | NUR ---
RECEIVED BEDSIDE SHIFT REPORT FROM OFF GOING NIGHT NURSE. PATIENT IN STABLE CONDITION, NO S/S OF DISTRESS NOTED. RESPIRATIONS EVEN AND NONLABORED. PATIENT ABLE TO VOICE NEEDS. NO PAIN VOICED. IV FLUIDS INFUSING, SITE ASYMPTOMATIC AND PATENT, TRANSPARENT DRESSING C/D/I. BED LOCKED AND IN LOWEST POSITION, SIDE RAILS X 2. CALL LIGHT WITHIN REACH.
[2020-09-08] MEDS: INSULIN REGULAR, HUMAN 100 UNIT/1 ML 3ML VIAL SQ SCH (07:30)
[2020-09-08 08:27] VITALS: BP 116/73
[2020-09-08 08:46] VITALS: BP 116/73
[2020-09-08] MEDS: LOSARTAN POTASSIUM 100 MG TAB PO SCH (08:50)
[2020-09-08] MEDS: ATENOLOL 50 MG TAB PO SCH (08:51)
[2020-09-08] MEDS: SODIUM CHLORIDE 0.9% 1000ML 1,000 ML IV SCH (10:45)
[2020-09-08] MEDS ORDERED: ONDANSETRON HCL 4 MG ORAL DISINTEGRATING TAB PO PRN (12:45)
--- NOTE | 2020-09-08 13:02 | NUR ---
PATIENT DISCHARGED HOME. PATIENT OFF THE UNIT @ 1244 VIA WHEELCHAIR ACCOMPANIED BY PCT TO THE LOBBY. PATIENT IN STABLE CONDITION, NO S/S OF DISTRESS NOTED. NO PAIN VOICE. IV ACCESS REMOVED WITH TIP INTACT. ALL PERSONAL ITEMS TAKEN WITH THE PATIENT. DISCHARGE TEACHING AND INSTRUCTION GIVEN TO THE PATIENT. PATIENT VERBALIZED UNDERSTANDING. DISCHARGE PAPERWORK AND PRESCRIPTIONS GIVEN TO THE PATIENT.
--- NOTE | 2020-09-09 01:05 | Discharge Summary ---
PCP: Dr. Soham Alvarado. FINAL DISCHARGE DIAGNOSES: 1. Left nephrolithiasis and hydroureteronephrosis, status post cystoscopy and stent placement. 2. Escherichia coli urinary tract infection. 3. Hypertension. 4. Diabetes type 2. 5. High cholesterol. 6. History of prostate cancer. CONSULTANTS: Dr. Darrius Lovell, Urology. PROCEDURES: He underwent cystoscopy with stent placement. HISTORY: Per HPI. HOSPITAL COURSE: This is a 75-year-old male, who presented to the ER with complaints of left flank pain radiating to the pelvis. CT abdomen and pelvis showed 5 mm obstructive stone in the distal left ureter with mild left hydroureteronephrosis, unable to determine a new stone versus the previously identified left ureteral stone with slight interval advancement, consider Urology consultation. Mild prostatomegaly and urine culture showed E. coli, he was started on IV antibiotics. Urology consulted and he underwent cystoscopy with stent placement. He was monitored overnight, had some hematuria, which cleared up. Today, he is voiding without difficulty and very light hematuria. He is cleared by Urology for discharge and follow up in [address] Darrius Lovell for further evaluation. PHYSICAL EXAMINATION: VITAL SIGNS: Temperature 97.6, pulse is 100, respirations 17, blood pressure 116/73, pulse ox is 100% on room air. GENERAL: No acute distress. HEENT: Normocephalic and atraumatic. NECK: Supple. LUNGS: Clear to auscultation. CARDIOVASCULAR: Regular rate and rhythm. GI: Soft and nontender. NEUROLOGIC: Alert, awake, and oriented x3. MUSCULOSKELETAL: Moves all extremities. No edema. SKIN: Dry and intact. PSYCH: Calm. CONDITION AT DISCHARGE: Improved and stable. DISCHARGE MEDICATIONS: Please see medication reconciliation list. Pain medication and antibiotics Rx given by Urology. FOLLOWUP: Follow up with PCP and Urology in 1 to 2 weeks. TIME SPENT: Total discharge time is 32 minutes. Dictated by LEON Arias Destini Mitchell MD MY/MODL /[id number] cc: Soham Alvarado
== END 2020-09-08 12:45 | disposition home or self-care (01) | DRG 661 ==
LOC: ER 12:34 → ERHOLD 15:20 → MED/SURG 16:39
PROVIDERS: ADMIT Internal Medicine; ATTEND Internal Medicine
PROC: BT141ZZ Fluoroscopy of Kidneys, Ureters and Bladder using Low Osmolar Contrast (ICD-10-PCS; 2020-09-07)
PROC: 0T778DZ Dilation of Left Ureter with Intraluminal Device, Via Natural or Artificial Opening Endoscopic (ICD-10-PCS; principal; 2020-09-07 08:00)
DX: N13.6 Pyonephrosis (principal); E11.9 Type 2 diabetes mellitus without complications; N35.919 Unspecified urethral stricture, male, unspecified site; I10 Essential (primary) hypertension; E78.00 Pure hypercholesterolemia, unspecified; N40.0 Benign prostatic hyperplasia without lower urinary tract symptoms; K42.9 Umbilical hernia without obstruction or gangrene; E83.51 Hypocalcemia; D64.9 Anemia, unspecified; Z91.041 Radiographic dye allergy status; Z85.46 Personal history of malignant neoplasm of prostate; Z87.442 Personal history of urinary calculi; Z80.0 Family history of malignant neoplasm of digestive organs; Z82.49 Family history of ischemic heart disease and other diseases of the circulatory system; Z20.828 Contact with and (suspected) exposure to other viral communicable diseases; B96.20 Unspecified Escherichia coli [E. coli] as the cause of diseases classified elsewhere; Z79.82 Long term (current) use of aspirin; Z79.84 Long term (current) use of oral hypoglycemic drugs
CPT/HCPCS: 36415; 74176; 74420; 80048; 80053; 81001; 83970; 84550; 85025; 85610; 85730; 87086; 87186; 99284; C2617; J0696; J1580; J1817; J1885; J2270; J2405; J7030; U0002

== ENCOUNTER → 2020-10-07 | Day surgery (SDC) | payer MEDICARE ==
[~2020-10-07] MED LIST: ASPIRIN ENTERI325 MG PO; ASPIRIN81 MG PO; ATENOLOL50 MG PO; B&O 60MG R/S 60 MG SUPP PR ONE; CEFTRIAXONE SOD 1 GM/NS 50 ML 50 ML IV ONE; CRESTOR10 MG PO; IOPAMIDOL 300MG/ML 50ML INFUS..BTL IV ONE; LIDOCAINE HCL 2% JELLY 5 ML TUBE ONE; LIDOCAINE HCL 2% LOCAL INJ 5 ML SDV VIAL INJ ONE; LOSARTAN POTAS100 MG PO; METFORMIN HCL500 MG PO; MIDAZOLAM HCL 2 MG/2 ML VIAL ONE; OMEPRAZOLE40 MG PO; ONDANSETRON HCL INJ 2MG/ML 2ML 2 MG/ML VIAL ONE; PROPOFOL IV EMULSION 10 MG/ML 20 ML VIAL ONE; SEVOFLURANE INHAL SOLN 250 ML PEN BTL ONE
[2020-10-07] MEDS: FENTANYL CITRATE/PF 100MCG/2 ML INJ ONE (11:22)
[2020-10-07] MEDS: ACETAMINOPHEN/CODEINE 300MG - 30MG TAB ONE (12:00)
[2020-10-07 12:10] VITALS: BP 147/77
== END | disposition home or self-care (01) ==
LOC: OR 07:28
PROVIDERS: ATTEND Urology
DX: N20.1 Calculus of ureter (principal); C61 Malignant neoplasm of prostate; N13.1 Hydronephrosis with ureteral stricture, not elsewhere classified; Z46.6 Encounter for fitting and adjustment of urinary device; N35.919 Unspecified urethral stricture, male, unspecified site; N40.1 Benign prostatic hyperplasia with lower urinary tract symptoms; N13.8 Other obstructive and reflux uropathy; R80.9 Proteinuria, unspecified; R35.1 Nocturia; E11.22 Type 2 diabetes mellitus with diabetic chronic kidney disease; I12.9 Hypertensive chronic kidney disease with stage 1 through stage 4 chronic kidney disease, or unspecified chronic kidney disease; N18.9 Chronic kidney disease, unspecified; K42.9 Umbilical hernia without obstruction or gangrene; K21.9 Gastro-esophageal reflux disease without esophagitis; Z91.041 Radiographic dye allergy status; Z01.812 Encounter for preprocedural laboratory examination; Z01.818 Encounter for other preprocedural examination; Z20.828 Contact with and (suspected) exposure to other viral communicable diseases; Z79.84 Long term (current) use of oral hypoglycemic drugs; Z92.3 Personal history of irradiation
CPT/HCPCS: 36415; 71046; 74018; 74430; 82948; 88300; C1769; C2617; J0696; J2001; J2250; J2405; J3010; U0002

== ENCOUNTER → 2020-11-25 | Day surgery (SDC) | payer MEDICARE, OTHER ==
[2020-11-20 09:17] LABS: BASOPHILS % 0.6 % (0.0-1.0); EOSINOPHILS # (AUTO) 0.1 (0.0-0.4); EOSINOPHILS % 1.5 % (0.0-6.0); HEMATOCRIT 43.2 % (38.2-49.6); HEMOGLOBIN 14.2 g/dL (14.0-18.0); LYMPHOCYTES # (AUTO) 1.4 (1.0-3.2); LYMPHOCYTES % 21.3 % (18.0-39.1); MEAN CORPUSCULAR HEMOGLOBIN 29.4 pg (28-32); MEAN CORPUSCULAR HGB CONC 32.9 g/dL (31-35); MEAN CORPUSCULAR VOLUME 89.4 fL (81-99); MONOCYTES # (AUTO) 0.5 (0.2-0.8); MONOCYTES % 7.1 % (4.4-11.3); NEUTROPHILS # (AUTO) 4.7 (2.1-6.9); NEUTROPHILS % 69.2 % (38.7-80.0); PLATELET COUNT 291 x10e3/uL (140-360); RED BLOOD COUNT 4.83 x10e6/uL (4.3-5.7); RED CELL DISTRIBUTION WIDTH 13.2 % (11.7-14.4)
[2020-11-20 18:01] LABS: ANION GAP 17.1 mmol/L (8-16); BLOOD UREA NITROGEN 16 mg/dL (7-26); BUN/CREATININE RATIO 17 (6-25); CALCIUM 9.2 mg/dL (8.4-10.2); CARBON DIOXIDE 24 mmol/L (22-29); CHLORIDE 106 mmol/L (98-107); CREATININE, SERUM 0.95 mg/dL (0.72-1.25); EST GLOMERULAR FILTRATION RATE > 60 ML/MIN (60-); GLUCOSE 110 mg/dL (74-118); POTASSIUM 4.1 mmol/L (3.5-5.1); SODIUM 143 mmol/L (136-145)
[~2020-11-25] MED LIST changes: +ACETAMINOPHEN/CODEINE 300MG - 30MG TAB ONE; +FENTANYL CITRATE/PF 100MCG/2 ML INJ ONE; -LIDOCAINE HCL 2% JELLY 5 ML TUBE ONE; -LIDOCAINE HCL 2% LOCAL INJ 5 ML SDV VIAL INJ ONE; -MIDAZOLAM HCL 2 MG/2 ML VIAL ONE; -ONDANSETRON HCL INJ 2MG/ML 2ML 2 MG/ML VIAL ONE; -PROPOFOL IV EMULSION 10 MG/ML 20 ML VIAL ONE; -SEVOFLURANE INHAL SOLN 250 ML PEN BTL ONE
[2020-11-25 12:00] VITALS: BP 140/76
== END | disposition home or self-care (01) ==
LOC: OR 08:04
PROVIDERS: ATTEND Urology
DX: N20.1 Calculus of ureter (principal); N35.912 Unspecified bulbous urethral stricture, male; Z46.6 Encounter for fitting and adjustment of urinary device; N40.1 Benign prostatic hyperplasia with lower urinary tract symptoms; N13.8 Other obstructive and reflux uropathy; N32.89 Other specified disorders of bladder; N13.5 Crossing vessel and stricture of ureter without hydronephrosis; N13.30 Unspecified hydronephrosis; R80.9 Proteinuria, unspecified; R35.1 Nocturia; E11.9 Type 2 diabetes mellitus without complications; I10 Essential (primary) hypertension; K42.9 Umbilical hernia without obstruction or gangrene; Z91.041 Radiographic dye allergy status; Z01.812 Encounter for preprocedural laboratory examination; Z20.822 Contact with and (suspected) exposure to COVID-19; Z79.84 Long term (current) use of oral hypoglycemic drugs; Z85.46 Personal history of malignant neoplasm of prostate; Z92.3 Personal history of irradiation
CPT/HCPCS: 36415 ×2; 52352; 74420; 80048; 82948; 85025; C1758; C1769; J0696; J3010; Q9967; U0002

== ENCOUNTER → 2022-05-18 | Outpatient (CLI) | payer OTHER ==
[~2022-05-18] MED LIST changes: -ACETAMINOPHEN/CODEINE 300MG - 30MG TAB ONE; -B&O 60MG R/S 60 MG SUPP PR ONE; -CEFTRIAXONE SOD 1 GM/NS 50 ML 50 ML IV ONE; -FENTANYL CITRATE/PF 100MCG/2 ML INJ ONE; -IOPAMIDOL 300MG/ML 50ML INFUS..BTL IV ONE
== END ==
LOC: RAD 11:11
PROVIDERS: ATTEND Family Medicine
DX: M75.41 Impingement syndrome of right shoulder (principal)

== ENCOUNTER → 2022-11-21 | Outpatient (CLI) | payer MEDICARE | LOC: MRI 08:58 | PROVIDERS: ATTEND Physician Assistant | DX: M75.41 Impingement syndrome of right shoulder (principal) ==